=== PATIENT | female | born 1955 | race Caucasian/White ===

== ENCOUNTER → 2016-10-03 | Outpatient (CLI) | payer OTHER ==
[~2016-10-03] MED LIST: ACETAMINOPHEN; ALPRAZOLAM2 MG PO; ANAPROX DS550 MG PO; ASPIRIN CHEWABL81 MG PO; AZO-SULFISOXAZO1 TA1 PO; BENZTROPINE MESY2 MG PO; BRIN20TA PO; BUPROPION HYDR300 M1 PO; CALCIUM 500 + D1 TA1 PO; CIPRO500 MG PO; CIPROFLOXACIN500 MG PO; CLARITIN 24HR10 MG PO; CLEOCIN150 MG PO; CLINDAMYCIN150 MG PO; COGENTIN PO; COGENTIN2 MG PO; COMBIVENT RESPIMAT I; COMBIVENT1 AR1 IH; COMBIVENT1 ARO IH; DOC-Q-LACE100 MG PO; EES400 MG PO; FENOFIBRATE160 MG PO; FLEXERIL10 MG PO; FOLIC ACID1 MG PO; FOSAMAX70 MG PO; GABAPENTIN600 MG PO; HYDROXYZINE PAM50 MG PO; IMITREX PO; IMITREX50 MG PO; INDERAL20 MG PO; K-Dur 20MEQ20 MEQ PO; KEPPRA750 MG PO; KLONOPIN1 M1 PO; KLOR-CON M2020 MEQ PO; LATU40TA PO; LOMOTIL 0.025 M1 TA1 PO; MEDROL DOSEPAK4 MG PO; METHOCARBAMOL750 MG PO; MOTRIN800 MG PO; NAPROSYN500 MG PO; NEURONTIN100 MG; NEURONTIN600 MG PO; OCUFLOX 0.3% 5 M5 ML; OSCAL ULTRA 6001 TAB PO; OXYCODONE; OYSTER CALCIUM1 TA2 PO; OYSTER SHELL CA1 TAB PO; PERCOCET 325 MG1 TA2 PO; PERCOCET 325 MG1 TA5 PO; PERCOCET 325 MG1 TA6 PO; PRAVACHOL40 MG PO; PREDNICOT20 MG PO; PROTONIX20 MG PO; REQUIP3 MG PO; ROBAXIN750 MG PO; ROPINIROLE HYDRO1 MG PO; ROZEREM8 MG PO; SEROQUEL100 MG PO; SEROQUEL25 MG PO; SEROQUEL300 MG PO; SEROQUEL400 MG; SIMVASTATIN40 MG PO; SUMATRIPTAN SUC50 MG PO; TORADOL10 MG PO; TYLENOL650 M1 PO; ULTRAM50 MG PO; VALIUM2 MG PO; VICO10300 PO; VISTARIL50 MG PO; VITAMIN D1000 IU PO; VITAMIN D50000 I1 PO; WELLBUTRIN PO; WELLBUTRIN XL300 MG PO; XANAX1 MG PO; XANAX2 MG; XANAX2 MG PO; ZOCOR PO; ZOCOR20 MG PO; ZOFRAN ODT4 MG SL; ZYRTEC10 MG PO; [UNRECOGNIZED DRUG - OTHER]; [UNRECOGNIZED DRUG - REMARK]
== END | disposition home or self-care (01) ==
LOC: RAD 07:57
DX: M40.04 Postural kyphosis, thoracic region (principal); M54.9 Dorsalgia, unspecified; M54.2 Cervicalgia; M25.561 Pain in right knee; M25.562 Pain in left knee

== ENCOUNTER 2017-05-21 19:01 | Emergency (ER) | payer OTHER ==
[~2017-05-21] VITALS: Ht 160 cm; Wt 59.0 kg
[2017-05-21 20:19] LABS: HEMOGLOBIN 12.5 g/dl (12.0-16.0); MEAN CELL VOLUME 101.9 fl (81.0-99.0); MEAN CORPUSCULAR HGB 34.4 pg (27.0-31.0); MEAN CORPUSCULAR HGB CONC 33.8 g/dl (33.0-37.0); MEAN PLATELET VOLUME 10.2 fl (9.6-12.3); PLATELET COUNT AUTOMATED 103 10*3/uL (130-400); RED BLOOD COUNT 3.63 10*6/uL (4.10-5.10); RED CELL DISTRI WIDTH 13.1 % (0-14.5); WHITE BLOOD COUNT 2.8 10*3/uL (4.8-10.8)
[2017-05-21 20:28] LABS: ACT PARTIAL THROMBO TIME 27.5 SECONDS (20.8-31.5); INTERNATIONAL NORM RATIO 1.1 (2.0-3.5)
[2017-05-21 20:36] LABS: ALBUMIN 3.1 gm/dl (3.1-4.5); ALKALINE PHOSPHATASE 114 U/L (45-117); BUN 6 mg/dl (7-24); CHLORIDE 108 mmol/L (98-107); CREATININE 0.84 mg/dL (0.55-1.02); MAGNESIUM 1.8 mg/dL (1.5-2.1); SGOT/AST 49 IU/L (3-35); SGPT/ALT 53 U/L (12-78); SODIUM 140 mmol/L (136-145); TOTAL PROTEIN 6.7 gm/dL (6.4-8.2)
[2017-05-21 20:41] LABS: TROPONIN I < 0.015 ng/ml (<0.045)
[2017-05-21 20:46] LABS: BASOPHILS 1 % (0-1); TOTAL CELLS COUNTED 100 #CELLS
[2017-05-21 20:49] LABS: POLYCHROMASIA SLIGHT
[2017-05-21 20:50] LABS: OVALOCYTES FEW
[2017-05-21 20:51] LABS: PLATELET SUFFICIENCY LOW (NORMAL)
[2017-05-21] MEDS ORDERED: AVPAK AZITHROM250 M1 PO (21:41)
[2017-05-21] MEDS ORDERED: PREDNISONE50 MG PO (21:41)
== END 2017-05-21 22:21 | disposition home or self-care (01) ==
LOC: ED 19:01
PROVIDERS: Student in an Organized Health Care Education/Training Program
DX: J06.9 Acute upper respiratory infection, unspecified (principal); D72.819 Decreased white blood cell count, unspecified; D69.6 Thrombocytopenia, unspecified; M13.861 Other specified arthritis, right knee; F17.200 Nicotine dependence, unspecified, uncomplicated; G25.81 Restless legs syndrome; Z90.710 Acquired absence of both cervix and uterus; Z98.890 Other specified postprocedural states; Z79.899 Other long term (current) drug therapy; Z79.82 Long term (current) use of aspirin; Z88.2 Allergy status to sulfonamides

== ENCOUNTER 2017-05-28 17:41 | Emergency (ER) | payer OTHER ==
[~2017-05-28] VITALS: Ht 160 cm; Wt 61.7 kg
[~2017-05-28 17:41] MED LIST changes: +AVPAK AZITHROM250 M1 PO; +PREDNISONE50 MG PO
== END 2017-05-28 22:26 | disposition home or self-care (01) ==
LOC: ED 17:41
DX: G89.29 Other chronic pain (principal); F17.200 Nicotine dependence, unspecified, uncomplicated; Z90.710 Acquired absence of both cervix and uterus; Z98.890 Other specified postprocedural states; Z79.899 Other long term (current) drug therapy; Z79.82 Long term (current) use of aspirin; Z88.2 Allergy status to sulfonamides

== ENCOUNTER 2017-05-30 13:49 | Emergency (ER) | payer OTHER ==
[~2017-05-30] VITALS: Ht 160 cm; Wt 59.0 kg
== END 2017-05-30 14:39 | disposition home or self-care (01) ==
LOC: ED 13:49
DX: G89.29 Other chronic pain (principal); F17.200 Nicotine dependence, unspecified, uncomplicated; M17.9 Osteoarthritis of knee, unspecified; G25.81 Restless legs syndrome; Z90.710 Acquired absence of both cervix and uterus; Z98.890 Other specified postprocedural states; Z79.899 Other long term (current) drug therapy; Z79.82 Long term (current) use of aspirin; Z88.2 Allergy status to sulfonamides

== ENCOUNTER 2017-08-11 09:15 | Inpatient (IN) | payer OTHER ==
[~2017-08-11] VITALS: Ht 160 cm; Wt 59.2 kg
--- NOTE | ~2017-08-11 | EKG ---
[place], [place] ELECTROCARDIOGRAM REPORT NAME: [id number] UNIT #: [id number] ROOM: [place] [address] DOCTOR: JORDIN GOODE,KEYLA BIRTHDATE: [birth year] DOS: 08/11/2017 TIME: 1327 hours. IMPRESSION: 1. Sinus rhythm. 2. Nonspecific ST-T changes. 3. Normal QT interval. KEYLA BRENNER MD CM:EKGRPT:ELECTROCARDIOGRAM REPORT [id number] KEYLA BRENNER MD
[2017-08-11 09:15] VITALS: BP 149/79
[2017-08-11 11:00] VITALS: BP 122/87
--- NOTE | 2017-08-11 11:00 | NUR ---
PT DISPLAYING WITHDRAWL SYMPTOMS.
[2017-08-11 11:15] LABS: BASO % 0.6 % (0.0-1.0); EOS % 0.9 % (1.0-4.0); HEMATOCRIT 42.7 % (37.0-47.0); HEMOGLOBIN 14.4 g/dl (12.0-16.0); LYMPH # 1.5 10*3/uL (1.3-4.4); LYMPH % 43.9 % (27.0-41.0); MEAN CORPUSCULAR HGB 33.7 pg (27.0-31.0); MEAN CORPUSCULAR HGB CONC 33.7 g/dl (33.0-37.0); MEAN PLATELET VOLUME 9.9 fl (9.6-12.3); MONO # 0.1 10*3/uL (0.1-1.0); MONO % 2.9 % (3.0-9.0); NEUT # 1.8 10*3/uL (2.3-7.9); NEUT % 51.4 % (47.0-73.0); PLATELET COUNT AUTOMATED 94 10*3/uL (130-400); RED BLOOD COUNT 4.27 10*6/uL (4.10-5.10); WHITE BLOOD COUNT 3.4 10*3/uL (4.8-10.8)
[2017-08-11 11:24] LABS: ACT PARTIAL THROMBO TIME 26.1 SECONDS (20.8-31.5); INTERNATIONAL NORM RATIO 1.1 (2.0-3.5)
[2017-08-11 11:31] LABS: ALBUMIN 3.7 gm/dl (3.1-4.5); BUN 10 mg/dl (7-24); CHLORIDE 109 mmol/L (98-107); CREATININE 0.76 mg/dL (0.55-1.02); LIPASE 189 U/L (73-393); POTASSIUM 3.9 mmol/L (3.5-5.1); SGOT/AST 51 IU/L (3-35); SGPT/ALT 69 U/L (12-78); SODIUM 143 mmol/L (136-145); TOTAL PROTEIN 7.6 gm/dL (6.4-8.2)
[2017-08-11 11:32] LABS: ALKALINE PHOSPHATASE 110 U/L (45-117)
[2017-08-11 11:33] LABS: TROPONIN I < 0.015 ng/ml (<0.045)
--- NOTE | 2017-08-11 11:43 | NUR ---
PT REFUSING CT
[2017-08-11 13:18] VITALS: BP 132/80
--- NOTE | 2017-08-11 13:20 | NUR ---
AFTER ATIVAN PT IS MORE COOPERATIVE.
[2017-08-11] MEDS ORDERED: ATARAX,VISTARIL10 MG PO (13:29)
[2017-08-11] MEDS ORDERED: DOXEPIN HCL25 MG PO (13:29)
--- NOTE | 2017-08-11 13:32 | NUR ---
Med rec was updated w/ [facility].
[2017-08-11 13:36] VITALS: BP 132/94
--- NOTE | 2017-08-11 13:36 | NUR ---
A 62, admitted to ICCU, under the services of YING De León DO with a diagnosis of METABOLIC ENCEPHALOPATHY. Chief complaint is PT. STATES SHE CAN'T TELL ME WHY SHE IS HERE. PER TRIAGE. dTR BROUGHT HER IN SHE WAS OUT OF MEDS . Patient arrived via stretcher from ER. Monitor applied. Initial assessment completed. Vital signs taken and recorded. YING DE LEÓN DO notified of admission to the unit. Orders received. See assessment for past medical history, medications and allergies. Patient and/or family oriented to unit. [facility] ICCU visitation policy reviewed. Clothing/patient valuable form completed. SHARON ARAGON
[2017-08-11] MEDS ORDERED: ASPIR 8181 MG PO (13:55)
[2017-08-11] MEDS ORDERED: Oscal,Oyster S500 MG PO (13:56)
[2017-08-11 16:00] VITALS: BP 148/73
--- NOTE | 2017-08-11 18:16 | NUR ---
Difficulty w/ IV access. IV to rW occluded and dc'd. IV to lW leaking at insertion site. IV attempts x6 2 w/ US guidence . Unsuccessful. Medicated for nausea w/ vomiting of green bile. Effective.
--- NOTE | 2017-08-11 19:25 | NUR ---
BACK FROM CT SCAN. SHARON ARAGON NOTIFIED DR FERRARI, PRIOR TO CT SCAN, THAT PT HAS NO IV ACCESS AFTER VERY MANY ATTEMPTS INCLUDING WITH ULTRASOUND.
[2017-08-11 20:00] VITALS: BP 173/81
--- NOTE | 2017-08-11 20:39 | NUR ---
DR FERRARI HERE...NOTIFIED OF CT ABDOMEN RESULTS.
[2017-08-12] VITALS: BP 140/70
[2017-08-12 04:00] VITALS: BP 137/90
--- NOTE | 2017-08-12 04:52 | NUR ---
IV LEAKED. COMPLETE BED LINEN AND GOWN CHANGE DONE. PT UP TO BSC.
[2017-08-12 04:55] LABS: BASO % 0.5 % (0.0-1.0); EOS # 0.1 10*3/uL (0.0-0.4); EOS % 1.5 % (1.0-4.0); HEMATOCRIT 37.8 % (37.0-47.0); LYMPH # 2.4 10*3/uL (1.3-4.4); LYMPH % 58.5 % (27.0-41.0); MEAN CELL VOLUME 100.5 fl (81.0-99.0); MEAN CORPUSCULAR HGB 34.6 pg (27.0-31.0); MEAN CORPUSCULAR HGB CONC 34.4 g/dl (33.0-37.0); MONO # 0.2 10*3/uL (0.1-1.0); MONO % 5.9 % (3.0-9.0); NEUT # 1.4 10*3/uL (2.3-7.9); NEUT % 33.4 % (47.0-73.0); PLATELET COUNT AUTOMATED 87 10*3/uL (130-400); RED BLOOD COUNT 3.76 10*6/uL (4.10-5.10); RED CELL DISTRI WIDTH 12.7 % (0-14.5); WHITE BLOOD COUNT 4.1 10*3/uL (4.8-10.8)
[2017-08-12 05:02] LABS: ACT PARTIAL THROMBO TIME 25.2 SECONDS (20.8-31.5); INTERNATIONAL NORM RATIO 1.1 (2.0-3.5)
--- NOTE | 2017-08-12 05:14 | NUR ---
IV CONNECTIONS TIGHTENED...CONTINUES TO HAVE GOOD BLOOD RETURN. IVF RESUMED AND HAS NOT LEAKED SINCE. PT STILL HAS NOT VOIDED FOR ME. NO DISTENTION NOTED. BLADDER SCANNED FOR 60CC.
--- NOTE | 2017-08-12 05:17 | NUR ---
DR FERRARI NOTIFIED OF PT NOT VOIDING SINCE ADMISSION AND THAT SHE WAS BLADDER SCANNED FOR 60CC. NO NEW ORDERS AT THIS TIME.
[2017-08-12 05:22] LABS: ALBUMIN 3.3 gm/dl (3.1-4.5); ALKALINE PHOSPHATASE 93 U/L (45-117); BUN 9 mg/dl (7-24); CHLORIDE 107 mmol/L (98-107); CHOLESTEROL 145 mg/dL (<200); CREATININE 0.62 mg/dL (0.55-1.02); FREE T4 0.69 ng/dl (0.76-1.46); HDL CHOLESTEROL 28 mg/dl (40-60); LDL CHOLESTEROL 98 mg/dL (9-159); PHOSPHOROUS 3.3 mg/dL (2.5-4.9); POTASSIUM 3.4 mmol/L (3.5-5.1); SGOT/AST 43 IU/L (3-35); SGPT/ALT 58 U/L (12-78); SODIUM 143 mmol/L (136-145); TOTAL PROTEIN 6.7 gm/dL (6.4-8.2); TRIGLYCERIDES 93 mg/dl (<150); VLDL CHOLESTEROL 19 mg/dL (6-40)
[2017-08-12 08:00] VITALS: BP 134/69
[2017-08-12 08:38] LABS: VITAMIN D, 25-HYDROXY 37.4 ng/mL (30-100)
--- NOTE | 2017-08-12 09:26 | NUR ---
Side lying , awakens easily. Dtr. Called in update given.
--- NOTE | 2017-08-12 11:05 | NUR ---
Dr. Daniel in, Order for tsfr to telemetry recieved.
[2017-08-12 12:00] VITALS: BP 130/68
--- NOTE | 2017-08-12 14:44 | NUR ---
Medicated for anxiety , nicoderm placed
[2017-08-12 16:00] VITALS: BP 135/89
--- NOTE | 2017-08-12 16:45 | NUR ---
ON 1600 ASSESSMENT PT. STATED SHE HAD TO VOID. assisted to BSC for 30 cc dark sam urine. returned to bed and bladder scan which revealed >[address] Lerner was called and recommended jama cath insertion . pt. overheard conversation w/ physician and stated that she had to go again. Up to BSC for large formed stool and 150 cc dark sam urine, in lieu of > 999 on scan. jama cath #16 was inserted w/o difficulty for post void residual of 1,000 cc dark sam urine. Jama cath secured to rt. thigh.
[2017-08-12 16:51] LABS: BILIRUBIN NEGATIVE (NEGATIVE); BLOOD NEGATIVE (NEGATIVE); CLARITY CLEAR (CLEAR); COLOR YELLOW (YELLOW); GLUCOSE NEGATIVE (NEGATIVE); KETONE NEGATIVE (NEGATIVE); LEUKO ESTERASE NEGATIVE (NEGATIVE); NITRITE NEGATIVE (NEGATIVE); PH 6.5 (5.0-9.0); SPECIFIC GRAVITY 1.015 (1.005-1.030); UROBILINOGEN 0.2 E.U./dl (0.2-1.0)
[2017-08-12 16:56] LABS: BACTERIA TRACE; EPITHELIAL CELLS 0-2; RBC 0-2 rbc/hpf (0-2)
--- NOTE | 2017-08-12 18:49 | NUR ---
Shift chart check completed.24 HR chart check completed.
--- NOTE | 2017-08-12 19:12 | NUR ---
Medicated for c/o headache.
--- NOTE | 2017-08-12 19:36 | NUR ---
PT MOVED TO A ROOM, WHERE IT WILL BE QUIETER/LIGHTS DIMMER SHE IS COMPLAINING OF A MIGRAINE ON THE "RIGHT SIDE" OF MY HEAD. PREVIOUS NURSE GAVE HER TYLENOL. NO NAUSEA/VOMITING. SHE DENIES TUNNEL VISION. SAID "DR ALDANA GAVE ME IMITREX". HEP LOCK INTACT. MONITOR NSR. LUNGS CLEAR, 98% ON ROOM AIR. HEP LOCK INTACT. ABDOMEN SOFT. ADKINS PATENT YELLOW URINE.
[2017-08-12 20:00] VITALS: BP 155/86
--- NOTE | 2017-08-12 20:14 | NUR ---
DR FERRARI NOTIFIED THAT PT C/O MIGRAINE. HE SAID HE WILL ENTER ORDERS.
--- NOTE | 2017-08-12 21:49 | NUR ---
PT HAD IMITREX AT 2023 AND HAS BEEN SLEEPING SINCE. NO DYSRHYTHMIAS OR RESPIRATORY DISTRESS.
--- NOTE | 2017-08-12 22:13 | NUR ---
PT AWAKE FOR HER SCHEDULED MEDS. STATES HER HEADACHE "COMPLETELY GONE, THAT IMITREX IS THE BEST STUFF THEY EVER MADE".
[2017-08-13] VITALS: BP 159/74
--- NOTE | 2017-08-13 02:57 | NUR ---
HAS BEEN SLEEPING WITH NO DISTRESS.
[2017-08-13 05:36] LABS: ALBUMIN 3.1 gm/dl (3.1-4.5); ALKALINE PHOSPHATASE 88 U/L (45-117); BUN 6 mg/dl (7-24); CHLORIDE 111 mmol/L (98-107); CREATININE 0.67 mg/dL (0.55-1.02); SGOT/AST 48 IU/L (3-35); SGPT/ALT 59 U/L (12-78); SODIUM 141 mmol/L (136-145); TOTAL PROTEIN 6.5 gm/dL (6.4-8.2)
[2017-08-13 05:48] LABS: POTASSIUM 4.5 mmol/L (3.5-5.1)
[2017-08-13 06:26] LABS: HEMATOCRIT 39.4 % (37.0-47.0); HEMOGLOBIN 13.2 g/dl (12.0-16.0); MEAN CELL VOLUME 101.3 fl (81.0-99.0); MEAN CORPUSCULAR HGB 33.9 pg (27.0-31.0); MEAN CORPUSCULAR HGB CONC 33.5 g/dl (33.0-37.0); MEAN PLATELET VOLUME 10.3 fl (9.6-12.3); PLATELET COUNT AUTOMATED 78 10*3/uL (130-400); RED BLOOD COUNT 3.89 10*6/uL (4.10-5.10); RED CELL DISTRI WIDTH 12.8 % (0-14.5)
[2017-08-13 07:15] LABS: BASOPHILS 2 % (0-1); OVALOCYTES FEW; PLATELET SUFFICIENCY LOW (NORMAL); POLYCHROMASIA SLIGHT; TOTAL CELLS COUNTED 100 #CELLS
[2017-08-13 08:00] VITALS: BP 122/75
[2017-08-13 12:00] VITALS: BP 132/81
--- NOTE | 2017-08-13 14:42 | NUR ---
TRANSFERRED TO [facility]
[2017-08-13 16:00] VITALS: BP 115/74
--- NOTE | 2017-08-13 16:45 | NUR ---
PT MEDICATED WITH VISTARIL. FOR C/O ANXIETY. WILL MONITRO
--- NOTE | 2017-08-13 17:00 | NUR ---
PT URINATED, SINCE LUCILLE HAS BEEN DC'D
--- NOTE | 2017-08-13 18:06 | NUR ---
pt states that vistaril helped a little. will monitor
[2017-08-13 20:00] VITALS: BP 124/73
[2017-08-14] VITALS: BP 95/48
[2017-08-14 06:42] LABS: BASO % 0.7 % (0.0-1.0); EOS # 0.1 10*3/uL (0.0-0.4); EOS % 3.3 % (1.0-4.0); HEMATOCRIT 37.8 % (37.0-47.0); HEMOGLOBIN 12.6 g/dl (12.0-16.0); LYMPH # 1.6 10*3/uL (1.3-4.4); LYMPH % 51.5 % (27.0-41.0); MEAN CELL VOLUME 101.6 fl (81.0-99.0); MEAN CORPUSCULAR HGB 33.9 pg (27.0-31.0); MEAN CORPUSCULAR HGB CONC 33.3 g/dl (33.0-37.0); MEAN PLATELET VOLUME 10.5 fl (9.6-12.3); MONO # 0.2 10*3/uL (0.1-1.0); MONO % 5.9 % (3.0-9.0); NEUT # 1.2 10*3/uL (2.3-7.9); NEUT % 38.6 % (47.0-73.0); PLATELET COUNT AUTOMATED 88 10*3/uL (130-400); RED BLOOD COUNT 3.72 10*6/uL (4.10-5.10); RED CELL DISTRI WIDTH 12.7 % (0-14.5); WHITE BLOOD COUNT 3.1 10*3/uL (4.8-10.8)
[2017-08-14 06:46] LABS: ALBUMIN 2.9 gm/dl (3.1-4.5); ALKALINE PHOSPHATASE 95 U/L (45-117); BUN 7 mg/dl (7-24); CHLORIDE 111 mmol/L (98-107); CREATININE 0.67 mg/dL (0.55-1.02); PHOSPHOROUS 4.1 mg/dL (2.5-4.9); POTASSIUM 3.7 mmol/L (3.5-5.1); SGOT/AST 54 IU/L (3-35); SGPT/ALT 65 U/L (12-78); SODIUM 143 mmol/L (136-145)
[2017-08-14 08:00] VITALS: BP 114/88
--- NOTE | 2017-08-14 09:48 | NUR ---
NOTIFIED DR AVELAR OF NEW CONSULT.
--- NOTE | 2017-08-14 09:51 | NUR ---
DR BRAGG ROUNDED, PT ASSESSED. PT STATED "SHE'S GOING HOME!", DR BRAGG ASSURED PT THAT SHE WAS ABLE TO F/U OUTPATIENT AT DR FLORES'S OFFICE. PT WAS SDATISFIED WITH THAT AT THIS TIME.
[2017-08-14] MEDS ORDERED: ATIVAN0.5 MG PO (10:55)
[2017-08-14] MEDS ORDERED: BETHANECHOL CHL25 MG PO (10:55)
[2017-08-14 12:00] VITALS: BP 116/71
--- NOTE | 2017-08-14 12:33 | NUR ---
Discharge instructions reviewed with patient/family. Patient receptive and verbalizes understanding. Follow-up care arranged. Written instructions given to patient/family. BONILLA HAM
== END 2017-08-14 12:33 | disposition home or self-care (01) | DRG 896 ==
LOC: ED 09:15 → ICCU 12:09 → EDHOLD 12:09 → ICCU 12:12 → 5E 08-13 15:13
PROVIDERS: Emergency Medicine; Internal Medicine; Internal Medicine Nephrology; ADMIT Student in an Organized Health Care Education/Training Program
DX: F13.239 Sedative, hypnotic or anxiolytic dependence with withdrawal, unspecified (principal); G93.41 Metabolic encephalopathy; E87.2 Acidosis; D69.6 Thrombocytopenia, unspecified; R73.9 Hyperglycemia, unspecified; G25.81 Restless legs syndrome; M17.11 Unilateral primary osteoarthritis, right knee; G89.29 Other chronic pain; F41.9 Anxiety disorder, unspecified; D72.810 Lymphocytopenia; G43.909 Migraine, unspecified, not intractable, without status migrainosus; F32.9 Major depressive disorder, single episode, unspecified; G47.00 Insomnia, unspecified; Z85.41 Personal history of malignant neoplasm of cervix uteri; Z90.710 Acquired absence of both cervix and uterus; Z80.9 Family history of malignant neoplasm, unspecified; Z88.2 Allergy status to sulfonamides; Z72.0 Tobacco use; Z79.82 Long term (current) use of aspirin; Z79.899 Other long term (current) drug therapy

== ENCOUNTER 2018-01-03 23:17 | Inpatient (IN) | payer OTHER ==
[~2018-01-03] VITALS: Ht 160 cm; Wt 56.9 kg
[~2018-01-03 23:17] MED LIST changes: +ASPIR 8181 MG PO; +ATARAX,VISTARIL10 MG PO; +ATIVAN0.5 MG PO; +BETHANECHOL CHL25 MG PO; +CLONAZEPAM1 MG PO; +DOXEPIN HCL25 MG PO; +Oscal,Oyster S500 MG PO; +PEPCID20 MG PO
[2018-01-03 23:20] VITALS: BP 145/78
[2018-01-03 23:48] LABS: BASO % 0.5 % (0.0-1.0); EOS # 0.1 10*3/uL (0.0-0.4); EOS % 1.9 % (1.0-4.0); HEMATOCRIT 43.2 % (37.0-47.0); HEMOGLOBIN 14.5 g/dl (12.0-16.0); LYMPH # 1.9 10*3/uL (1.3-4.4); LYMPH % 44.1 % (27.0-41.0); MEAN CELL VOLUME 99.5 fl (81.0-99.0); MEAN CORPUSCULAR HGB 33.4 pg (27.0-31.0); MEAN CORPUSCULAR HGB CONC 33.6 g/dl (33.0-37.0); MEAN PLATELET VOLUME 10.1 fl (9.6-12.3); MONO # 0.3 10*3/uL (0.1-1.0); MONO % 6.8 % (3.0-9.0); NEUT % 46.7 % (47.0-73.0); PLATELET COUNT AUTOMATED 126 10*3/uL (130-400); RED BLOOD COUNT 4.34 10*6/uL (4.10-5.10); RED CELL DISTRI WIDTH 13.5 % (0-14.5); WHITE BLOOD COUNT 4.2 10*3/uL (4.8-10.8)
[2018-01-04] VITALS (8 sets, daily range): BP systolic 140–173; BP diastolic 69–96
[2018-01-04 00:10] LABS: ALBUMIN 3.7 gm/dl (3.1-4.5); ALKALINE PHOSPHATASE 111 U/L (45-117); BUN 14 mg/dl (7-24); CHLORIDE 108 mmol/L (98-107); CREATININE 0.71 mg/dL (0.55-1.02); POTASSIUM 3.7 mmol/L (3.5-5.1); SGOT/AST 35 IU/L (3-35); SGPT/ALT 45 U/L (12-78); SODIUM 142 mmol/L (136-145); TOTAL PROTEIN 7.6 gm/dL (6.4-8.2)
[2018-01-04 00:12] LABS: TROPONIN I < 0.015 ng/ml (<0.045)
[2018-01-04 01:08] LABS: LIPASE 168 U/L (73-393)
[2018-01-04 01:18] LABS: BILIRUBIN 1+ (NEGATIVE); BLOOD NEGATIVE (NEGATIVE); CLARITY SL CLOUDY (CLEAR); COLOR YELLOW (YELLOW); GLUCOSE NEGATIVE (NEGATIVE); KETONE 2+ (NEGATIVE); LEUKO ESTERASE NEGATIVE (NEGATIVE); NITRITE NEGATIVE (NEGATIVE); SPECIFIC GRAVITY >= 1.030 (1.005-1.030)
[2018-01-04 01:27] LABS: URINE AMPHETAMINES < 1000 (1000ng/ml); URINE BARBITURATES < 200 (200ng/ml); URINE BENZODIAZEPINES < 200 (200ng/ml); URINE CANNABINOIDS (THC) < 50 (50ng/ml); URINE COCAINE > 300 (300ng/ml); URINE METHADONE < 300 (300ng/ml); URINE OPIATES < 300 (300ng/ml)
[2018-01-04 01:28] LABS: URINE PHENCYCLIDINE < 25 (25ng/ml)
[2018-01-04] MEDS ORDERED: KEPPRA250 MG PO (01:31)
[2018-01-04] MEDS ORDERED: KEPPRA750 MG PO (01:31)
[2018-01-04] MEDS ORDERED: ATARAX,VISTARIL10 MG PO ×2 (01:32→09:48)
[2018-01-04 01:34] LABS: BACTERIA 1+; MUCOUS 1+
[2018-01-04] MEDS ORDERED: NEURONTIN600 MG PO (09:47)
[2018-01-05] VITALS: BP 132/75
[2018-01-05 05:55] LABS: BASO % 0.6 % (0.0-1.0); EOS # 0.3 10*3/uL (0.0-0.4); EOS % 3.7 % (1.0-4.0); HEMATOCRIT 42.6 % (37.0-47.0); LYMPH # 3.6 10*3/uL (1.3-4.4); LYMPH % 52.6 % (27.0-41.0); MEAN CELL VOLUME 99.5 fl (81.0-99.0); MEAN CORPUSCULAR HGB 32.7 pg (27.0-31.0); MEAN CORPUSCULAR HGB CONC 32.9 g/dl (33.0-37.0); MONO # 0.5 10*3/uL (0.1-1.0); MONO % 6.6 % (3.0-9.0); NEUT # 2.5 10*3/uL (2.3-7.9); NEUT % 36.2 % (47.0-73.0); PLATELET COUNT AUTOMATED 146 10*3/uL (130-400); RED BLOOD COUNT 4.28 10*6/uL (4.10-5.10); RED CELL DISTRI WIDTH 13.6 % (0-14.5); WHITE BLOOD COUNT 6.8 10*3/uL (4.8-10.8)
[2018-01-05 06:07] LABS: BUN 12 mg/dl (7-24); CHLORIDE 103 mmol/L (98-107); CHOLESTEROL 163 mg/dL (<200); CREATININE 0.82 mg/dL (0.55-1.02); HDL CHOLESTEROL 23 mg/dl (40-60); LDL CHOLESTEROL 117 mg/dL (9-159); PHOSPHOROUS 3.2 mg/dL (2.5-4.9); SODIUM 138 mmol/L (136-145); TRIGLYCERIDES 114 mg/dl (<150); VLDL CHOLESTEROL 23 mg/dL (6-40)
[2018-01-05 07:12] LABS: VITAMIN D, 25-HYDROXY 41.8 ng/mL (30-100)
[2018-01-05 08:00] VITALS: BP 108/65
[2018-01-05] MEDS ORDERED: SEROQUEL100 MG PO (11:29)
== END 2018-01-05 12:20 | disposition home or self-care (01) | DRG 71 ==
LOC: ED 23:17 → 4E 01-04 02:07 → EDHOLD 01-04 02:07 → 4E 01-04 02:11
PROVIDERS: Emergency Medicine; Student in an Organized Health Care Education/Training Program
DX: G93.40 Encephalopathy, unspecified (principal); F13.239 Sedative, hypnotic or anxiolytic dependence with withdrawal, unspecified; D69.6 Thrombocytopenia, unspecified; Z83.3 Family history of diabetes mellitus; E83.41 Hypermagnesemia; F14.10 Cocaine abuse, uncomplicated; D72.819 Decreased white blood cell count, unspecified; D75.89 Other specified diseases of blood and blood-forming organs; R73.9 Hyperglycemia, unspecified; M13.861 Other specified arthritis, right knee; F17.210 Nicotine dependence, cigarettes, uncomplicated; G25.81 Restless legs syndrome; G43.909 Migraine, unspecified, not intractable, without status migrainosus; G89.29 Other chronic pain; F41.9 Anxiety disorder, unspecified; F32.9 Major depressive disorder, single episode, unspecified; Z88.2 Allergy status to sulfonamides; Z85.41 Personal history of malignant neoplasm of cervix uteri; Z90.710 Acquired absence of both cervix and uterus

== ENCOUNTER 2018-04-15 12:07 | Emergency (ER) | payer MEDICARE, MEDICAID ==
[~2018-04-15] VITALS: Ht 160 cm; Wt 60.3 kg
[~2018-04-15 12:07] MED LIST changes: +KEPPRA250 MG PO
[2018-04-23] MEDS ORDERED: SEROQUEL300 MG PO (08:51)
[2018-04-26] MEDS ORDERED: AMOXICILLIN500 M2 PO (09:18)
[2018-04-26] MEDS ORDERED: CLARITHROMYCIN500 MG PO (09:18)
[2018-04-26] MEDS ORDERED: OMEPRAZOLE40 MG PO (09:18)
== END 2018-04-15 12:25 | disposition left against medical advice (07) ==
LOC: ED 12:07
DX: R05 Cough (principal); F17.200 Nicotine dependence, unspecified, uncomplicated; Z53.21 Procedure and treatment not carried out due to patient leaving prior to being seen by health care provider; Z88.2 Allergy status to sulfonamides

== ENCOUNTER 2018-06-01 15:31 | Inpatient (IN) | payer MEDICARE, MEDICAID ==
[~2018-06-01] VITALS: Ht 160 cm; Wt 63.1 kg
--- NOTE | ~2018-06-01 | EKG ---
[place], [place] ELECTROCARDIOGRAM REPORT NAME: MICHELLE JANG UNIT #: [id number] ROOM: 505 DOCTOR: KAT DRAFT REPORT BIRTHDATE: [address] [facility] Test Date: 2018-06-01 Test Time: 16:47:33 Pat Name: MICHELLE JANG Department: Room: 505 Gender: F Architectural Engineer: Freida Lal : 1955 Requested By: CRYSTAL ADAN Order Number: [id number] Reading MD: Johny Benjamin MD Measurements Intervals [place] Rate: 86 P: 62 CO: 168 QRS: 38 QRSD: 79 T: 50 QT: 360 QTc: 431 Interpretive Statements Sinus rhythm Probable left atrial enlargement No previous ECG available for comparison Electronically Signed On 06-06-2018 12:13:06 PDT by Johny Benjamin MD CM:EKGRPT:ELECTROCARDIOGRAM REPORT [id number] 1213 CRYSTAL ELIZABETH DRAFT REPORT CRYSTAL ADAN DO
[2018-06-01 15:31] VITALS: BP 147/84
[~2018-06-01 15:31] MED LIST changes: +AMOXICILLIN500 M2 PO; +CLARITHROMYCIN500 MG PO; +OMEPRAZOLE40 MG PO
[2018-06-01 16:54] LABS: BASO % 0.8 % (0.0-1.0); EOS # 0.1 10*3/uL (0.0-0.4); EOS % 1.9 % (1.0-4.0); HEMATOCRIT 41.3 % (37.0-47.0); HEMOGLOBIN 13.7 g/dl (12.0-16.0); LYMPH # 1.8 10*3/uL (1.3-4.4); LYMPH % 48.4 % (27.0-41.0); MEAN CELL VOLUME 103.3 fl (81.0-99.0); MEAN CORPUSCULAR HGB 34.3 pg (27.0-31.0); MEAN CORPUSCULAR HGB CONC 33.2 g/dl (33.0-37.0); MONO # 0.2 10*3/uL (0.1-1.0); MONO % 5.9 % (3.0-9.0); NEUT # 1.6 10*3/uL (2.3-7.9); NEUT % 42.7 % (47.0-73.0); PLATELET COUNT AUTOMATED 100 10*3/uL (130-400); RED CELL DISTRI WIDTH 14.3 % (0-14.5); WHITE BLOOD COUNT 3.8 10*3/uL (4.8-10.8)
[2018-06-01 17:10] LABS: ALKALINE PHOSPHATASE 78 U/L (45-117); BUN 8 mg/dl (7-24); CHLORIDE 106 mmol/L (98-107); IRON 126 ug/dL (50-170); LIPASE 251 U/L (73-393); SGOT/AST 39 IU/L (3-35); SGPT/ALT 71 U/L (12-78); SODIUM 139 mmol/L (136-145); TOTAL IRON BINDING CAPACITY 403 ug/dl (250-450); TOTAL PROTEIN 7.6 gm/dL (6.4-8.2)
[2018-06-01 17:12] LABS: TROPONIN I < 0.015 ng/ml (<0.045)
[2018-06-01 17:14] LABS: ACT PARTIAL THROMBO TIME 23.1 SECONDS (20.8-31.5)
[2018-06-01] MEDS ORDERED: CLONAZEPAM0.5 M2 PO (18:27)
[2018-06-01] MEDS ORDERED: BUSPIRONE HCL10 MG PO (18:28)
[2018-06-01] MEDS ORDERED: NEURONTIN300 MG PO (18:29)
[2018-06-01] MEDS ORDERED: QUETIAPINE FUM300 M1 PO (18:31)
[2018-06-01] MEDS ORDERED: DOXEPIN HCL50 MG PO (18:32)
[2018-06-01 18:55] VITALS: BP 145/82
[2018-06-01 19:05] VITALS: BP 149/94
[2018-06-01 20:00] VITALS: BP 142/86
[2018-06-02] VITALS: BP 102/63
[2018-06-02 04:00] VITALS: BP 90/55
[2018-06-02 06:30] LABS: BASO % 0.6 % (0.0-1.0); EOS # 0.1 10*3/uL (0.0-0.4); EOS % 2.5 % (1.0-4.0); HEMATOCRIT 38.9 % (37.0-47.0); HEMOGLOBIN 13.1 g/dl (12.0-16.0); LYMPH # 1.7 10*3/uL (1.3-4.4); LYMPH % 45.5 % (27.0-41.0); MEAN CELL VOLUME 104.3 fl (81.0-99.0); MEAN CORPUSCULAR HGB 35.1 pg (27.0-31.0); MEAN CORPUSCULAR HGB CONC 33.7 g/dl (33.0-37.0); MEAN PLATELET VOLUME 10.6 fl (9.6-12.3); MONO # 0.2 10*3/uL (0.1-1.0); MONO % 5.5 % (3.0-9.0); NEUT # 1.7 10*3/uL (2.3-7.9); NEUT % 45.6 % (47.0-73.0); PLATELET COUNT AUTOMATED 99 10*3/uL (130-400); RED BLOOD COUNT 3.73 10*6/uL (4.10-5.10); RED CELL DISTRI WIDTH 14.5 % (0-14.5); WHITE BLOOD COUNT 3.6 10*3/uL (4.8-10.8)
[2018-06-02 06:37] LABS: CHLORIDE 108 mmol/L (98-107); POTASSIUM 3.9 mmol/L (3.5-5.1); SODIUM 140 mmol/L (136-145)
[2018-06-02 06:49] LABS: ACT PARTIAL THROMBO TIME 24.1 SECONDS (20.8-31.5)
[2018-06-02 07:04] LABS: ALBUMIN 3.6 gm/dl (3.1-4.5); ALKALINE PHOSPHATASE 68 U/L (45-117); BUN 8 mg/dl (7-24); CHOLESTEROL 111 mg/dL (<200); HDL CHOLESTEROL 28 mg/dl (40-60); LDL CHOLESTEROL 57 mg/dL (9-159); SGOT/AST 37 IU/L (3-35); SGPT/ALT 62 U/L (12-78); TOTAL PROTEIN 6.9 gm/dL (6.4-8.2); TRIGLYCERIDES 131 mg/dl (<150); VLDL CHOLESTEROL 26 mg/dL (6-40)
[2018-06-02 07:07] LABS: VITAMIN D, 25-HYDROXY 40.6 ng/mL (30-100)
[2018-06-02 08:00] VITALS: BP 120/80
[2018-06-02] MEDS ORDERED: FLAGYL500 MG PO (10:53)
[2018-06-02] MEDS ORDERED: CIPRO500 MG PO (10:53)
== END 2018-06-02 12:46 | disposition home or self-care (01) | DRG 378 ==
LOC: ED 15:31 → EDHOLD 17:57 → 5E 17:57
PROVIDERS: Emergency Medicine; Student in an Organized Health Care Education/Training Program
DX: K92.2 Gastrointestinal hemorrhage, unspecified (principal); E87.2 Acidosis; R10.9 Unspecified abdominal pain; K59.01 Slow transit constipation; M17.10 Unilateral primary osteoarthritis, unspecified knee; K21.9 Gastro-esophageal reflux disease without esophagitis; G89.29 Other chronic pain; G43.909 Migraine, unspecified, not intractable, without status migrainosus; G25.81 Restless legs syndrome; F17.210 Nicotine dependence, cigarettes, uncomplicated; I45.81 Long QT syndrome; F41.9 Anxiety disorder, unspecified; F32.9 Major depressive disorder, single episode, unspecified; D70.9 Neutropenia, unspecified; D75.89 Other specified diseases of blood and blood-forming organs; Z90.710 Acquired absence of both cervix and uterus; Z85.41 Personal history of malignant neoplasm of cervix uteri; Z88.2 Allergy status to sulfonamides; Z80.9 Family history of malignant neoplasm, unspecified; Z79.899 Other long term (current) drug therapy

== ENCOUNTER 2018-12-04 00:47 | Emergency (ER) | payer MEDICARE ==
[~2018-12-04] VITALS: Ht 160 cm; Wt 63.5 kg
--- NOTE | ~2018-12-04 | EKG ---
[place], [place] ELECTROCARDIOGRAM REPORT NAME: MICHELLE JANG UNIT #: [id number] ROOM: DOCTOR: EPIPHANY DRAFT REPORT BIRTHDATE: [birth year] [facility] Test Date: 2018-12-04 Test Time: 01:23:16 Pat Name: MICHELLE JANG Department: Room: Gender: F Bilingual Recruiter: : 1955 Requested By: DL ARNOLD Order Number: [id number] Reading MD: Dhruv Pisano MD Measurements Intervals [place] Rate: 63 P: 46 SC: 161 QRS: 16 QRSD: 79 T: 59 QT: 437 QTc: 448 Interpretive Statements Sinus rhythm Compared to ECG 06/01/2018 16:47:33 No significant changes Electronically Signed On 12-06-2018 7:13:11 PDT by Dhruv Pisano MD CM:EKGRPT:ELECTROCARDIOGRAM REPORT [id number] DL ARNOLD MD EPIPHANY DRAFT REPORT DL ARNOLD MD
[~2018-12-04 00:47] MED LIST changes: +BUSPIRONE HCL10 MG PO; +CLONAZEPAM0.5 M2 PO; +DOXEPIN HCL50 MG PO; +FLAGYL500 MG PO; +NEURONTIN300 MG PO; +QUETIAPINE FUM300 M1 PO
[2018-12-04 01:41] LABS: BASO % 0.7 % (0.0-1.0); EOS # 0.1 10*3/uL (0.0-0.4); EOS % 2.5 % (1.0-4.0); HEMATOCRIT 42.8 % (37.0-47.0); LYMPH # 2.1 10*3/uL (1.3-4.4); LYMPH % 48.3 % (27.0-41.0); MEAN CELL VOLUME 99.3 fl (81.0-99.0); MEAN CORPUSCULAR HGB 32.5 pg (27.0-31.0); MEAN CORPUSCULAR HGB CONC 32.7 g/dl (33.0-37.0); MEAN PLATELET VOLUME 10.2 fl (9.6-12.3); MONO # 0.3 10*3/uL (0.1-1.0); MONO % 6.1 % (3.0-9.0); NEUT # 1.8 10*3/uL (2.3-7.9); NEUT % 41.5 % (47.0-73.0); PLATELET COUNT AUTOMATED 91 10*3/uL (130-400); RED BLOOD COUNT 4.31 10*6/uL (4.10-5.10); RED CELL DISTRI WIDTH 14.4 % (0-14.5); WHITE BLOOD COUNT 4.4 10*3/uL (4.8-10.8)
[2018-12-04 02:08] LABS: ALBUMIN 3.1 gm/dl (3.1-4.5); ALKALINE PHOSPHATASE 122 U/L (45-117); BUN 16 mg/dl (7-24); CHLORIDE 108 mmol/L (98-107); CREATININE 0.92 mg/dL (0.55-1.02); LIPASE 272 U/L (73-393); POTASSIUM 4.4 mmol/L (3.5-5.1); SGOT/AST 66 IU/L (3-35); SGPT/ALT 82 U/L (12-78); SODIUM 138 mmol/L (136-145); TOTAL PROTEIN 7.3 gm/dL (6.4-8.2)
[2018-12-04 02:14] LABS: TROPONIN I < 0.015 ng/ml (<0.045)
[2018-12-04 02:15] LABS: ACETAMINOPHEN (TYLENOL) < 5.0 ug/ml (10-30); ETHYL ALCOHOL < 3.0 mg/dl (<3)
[2018-12-04 02:58] LABS: BILIRUBIN NEGATIVE (NEGATIVE); BLOOD NEGATIVE (NEGATIVE); CLARITY CLEAR (CLEAR); COLOR YELLOW (YELLOW); GLUCOSE 1+ (NEGATIVE); KETONE NEGATIVE (NEGATIVE); LEUKO ESTERASE NEGATIVE (NEGATIVE); NITRITE NEGATIVE (NEGATIVE); PH 6.5 (5.0-9.0); UROBILINOGEN 0.2 E.U./dl (0.2-1.0)
[2018-12-04 03:10] LABS: URINE AMPHETAMINES < 1000 (1000ng/ml); URINE BARBITURATES < 200 (200ng/ml); URINE BENZODIAZEPINES < 200 (200ng/ml); URINE CANNABINOIDS (THC) < 50 (50ng/ml); URINE COCAINE < 300 (300ng/ml); URINE METHADONE < 300 (300ng/ml); URINE OPIATES < 300 (300ng/ml)
[2018-12-04 03:21] LABS: URINE PHENCYCLIDINE < 25 (25ng/ml)
[2018-12-04 03:36] LABS: BACTERIA TRACE
== END 2018-12-04 10:42 | disposition home or self-care (01) ==
LOC: ED 00:47
PROVIDERS: Emergency Medicine Emergency Medical Services
DX: F31.9 Bipolar disorder, unspecified (principal); R41.82 Altered mental status, unspecified; R53.1 Weakness; R42 Dizziness and giddiness; F41.9 Anxiety disorder, unspecified; K21.9 Gastro-esophageal reflux disease without esophagitis; G43.909 Migraine, unspecified, not intractable, without status migrainosus; M13.861 Other specified arthritis, right knee; R79.1 Abnormal coagulation profile; F17.200 Nicotine dependence, unspecified, uncomplicated; Z88.2 Allergy status to sulfonamides; Z79.899 Other long term (current) drug therapy

== ENCOUNTER 2018-12-10 12:18 | Inpatient (IN) | payer MEDICARE ==
[~2018-12-10] VITALS: Ht 160 cm; Wt 60.3 kg
--- NOTE | ~2018-12-10 | DS ---
[place], [place] DISCHARGE SUMMARY NAME[id number] UNIT #: [id number] ROOM: 311 DOCTOR: ISIDRA CAMARENA MD BIRTHDATE: [birth year] DOS: 12/13/2018 CHIEF COMPLAINT: "My memory is bad." HISTORY OF PRESENT ILLNESS: This is a 63-year-old white female with a long history of mood disorder, who presented to [facility] with a chief complaint of increased confusion. She was admitted to the medical floor initially. Once medically cleared, her confusion and depression persisted and it was felt that an inpatient stabilization was warranted. The patient has a history of polysubstance abuse and also has been misusing her prescribed psychiatric medicines. She was admitted to the U to rule out organic factors to stabilize on medication, to engage in individual and saavedra milieu activity, returning then to the least restrictive environment when psychiatrically stable. SUMMARY OF HOSPITAL COURSE: The patient was admitted to the unit where she was continued on her Seroquel 600 mg at bedtime, doxepin was discontinued in lieu of Remeron 15 mg at bedtime. The patient had a chance just to clear over the weekend without the use of benzodiazepines and sedative hypnotics. She initially was admitted to the unit, alert and oriented to self only. By the time Thursday came, she had cleared completely and was alert and oriented to person, place, and time. During Thursday's rounds, the patient reported good sleep and appetite. She convincingly denied suicidal thoughts, homicidal thoughts or any self-injurious thoughts and voiced positive plans for the future and discussed with me plan she had for [facility] with her family. She reported that the current medication regimen was effective and she was ready for discharge. MENTAL STATUS EXAMINATION: At discharge, the patient is alert and oriented to person, place, and time. Mood was euthymic. Affect appropriate. There is no azalia, hypomania, or psychosis. Short, intermediate, and long-term memory are intact. FINAL DIAGNOSES: Bipolar type 2 and polysubstance abuse. PLAN: All of her prescriptions have been E-scribed to [facility]. At the time of discharge, she was medically and psychiatrically stable. There were no acute issues at the time of discharge. [place], [place] DISCHARGE SUMMARY NAME: MICHELLE JANG UNIT #: [id number] ROOM: 311 DOCTOR: ISIDRA CAMARENA MD BIRTHDATE: [birth year] ISIDRA CAMARENA MD CM:DUSTIN [id number] ISIDRA CAMARENA MD 12/13/18 1316 interface
--- NOTE | ~2018-12-10 | PR ---
[place], [place] PROGRESS NOTE NAME: [id number] UNIT #: [id number] ROOM: 311 DOCTOR: RANDALL NOEL CNP BIRTHDATE: [birth year] DOS: 12/12/2018 CHIEF COMPLAINT: "I have got the diarrhea." SUMMARY OF THE VISIT: The patient was interviewed as she was walking in the hallway. The patient engaged readily in conversation with me, she reports that she has had diarrhea today. She does report not sleeping well last night, but Vistaril was effective to help her sleep. The patient reports her appetite has been good. She feels as if her mood is more stable. Staff reports that the patient was trying to seek pain medication from the medical doctor today. The Vistaril that was given last night to the patient was effective. The patient had been pacing in the hallways prior to this. MENTAL STATUS EXAMINATION: The patient is alert and oriented to person, place and time. She was pleasant and cooperative with me. No azalia or hypomania noted. No delusions or paranoia noted. No psychotic symptoms noted. No auditory or visual hallucinations noted. The patient's mood is calm. No agitation. Affect is congruent with mood. The patient's judgment and insight is fair. PLAN: I will discontinue the patient's doxepin. We will start Remeron 15 mg at bedtime to aid in sleep as well to stimulate appetite. The patient will continue lactulose 30 mg b.i.d. due to elevated ammonia levels. This will be the cause of her diarrhea. We will recheck her ammonia level on Thursday. Continue to encourage the patient to engage in individual and saavedra milieu activity. Continue fall and safety precautions. Plan to return the patient to the least restrictive environment when she is considered psychiatrically stable. Randall Noel CNP CM:PNTRANS [id number] RANDALL NOEL CNP 12/13/18 0330 interface
--- NOTE | ~2018-12-10 | WRIGHTHP ---
[place], [place] PATIENT HISTORY AND PHYSICAL EXAM [id number] UNIT #: [id number] ROOM: 311 DOCTOR: RANDALL NOEL CNP BIRTHDATE: [birth year] DOS: 12/11/2018 CHIEF COMPLAINT: "My memory is bad." HISTORY OF PRESENT ILLNESS: This is a 63-year-old white female with a history of mood disorder that presented to [facility] with a history of confusion. The patient had been admitted to the medical floor to be evaluated and treated. Once the patient was medically cleared from the medical floor, it was decided to admit her to Behavioral Health Unit to rule out further organic factors and attempt to stabilize her on her medication. Her granddaughter reports that she becomes confused when she runs out of her medications and that she sometimes takes more medication than is prescribed. We will encourage the patient to engage in individual and saavedra milieu activity. We will continue fall and safety precautions and we will plan to return the patient to the least restrictive environment when she is considered psychiatrically stable. PAST MEDICAL HISTORY: Remarkable for anxiety and depression, arthritis of her right knee, benzodiazepine dependence, bipolar, chronic pain, constipation, gastritis, GERD, macrocytosis, migraines, nicotine dependence, restless leg syndrome, seizure disorder, thrombocytopenia, tobacco use, cervical cancer. SOCIAL HISTORY: Positive for marijuana and cocaine use. The patient does smoke 1-2 packs per day and has done so since 16 years old. She denies alcohol use. STRENGTHS: The patient is ambulatory and has good verbal skills. WEAKNESSES: The patient has poor coping skills, polysubstance abuse and chronic pain. MENTAL STATUS: The patient is alert and oriented to person, place and time with some memory gaps. She was pleasant and cooperative with me. There is no overt azalia or hypomania noted. No delusions or paranoia noted. No psychotic symptoms noted. No auditory or visual hallucinations noted. Her mood was calm. Her affect was appropriate at the time of interview. Insight and judgment are fair. Thought process normal. Short and long-term memory appeared intact for the most part. DIAGNOSES: Bipolar disorder and polysubstance abuse. PLAN: The patient's labs are reviewed. The patient's labs, her liver functions are slightly elevated at 39 and 79, her ammonia level is elevated at 35. I did order lactulose 30 mg twice a day to bring the ammonia level down. We will recheck serum ammonia level on Thursday. The patient will continue Seroquel 600 mg at bedtime and doxepin 100 mg at bedtime. We will continue to monitor and support the patient. Continue to encourage the patient to engage in individual and saavedra milieu activity. We will continue fall and safety precautions. Plan is to return the patient to the least restrictive environment when she is considered psychiatrically stable. [place], [place] PATIENT HISTORY AND PHYSICAL EXAM NAME: MICHELLE JANG UNIT #: [id number] ROOM: [facility] DOCTOR: RANDALL NOEL CNP BIRTHDATE: [birth year] Randall Noel CNP CM:HISPHYS:PATIENT HISTORY AND PHYSICAL EXAMINATION 1337 1428 RANDALL NOEL CNP 12/11/18 1427 interface
[2018-12-10 14:38] VITALS: BP 150/81
[2018-12-10 15:06] VITALS: BP 150/81
[2018-12-10 15:36] LABS: BILIRUBIN 1+ (NEGATIVE); BLOOD TRACE-LYSED (NEGATIVE); CLARITY CLEAR (CLEAR); COLOR YELLOW (YELLOW); GLUCOSE NEGATIVE (NEGATIVE); KETONE 2+ (NEGATIVE); LEUKO ESTERASE NEGATIVE (NEGATIVE); NITRITE NEGATIVE (NEGATIVE); SPECIFIC GRAVITY >= 1.030 (1.005-1.030); UROBILINOGEN 0.2 E.U./dl (0.2-1.0)
[2018-12-10 15:44] LABS: BACTERIA 1+; EPITHELIAL CELLS 16-20; URINE AMPHETAMINES < 1000 (1000ng/ml); URINE BARBITURATES < 200 (200ng/ml); URINE BENZODIAZEPINES < 200 (200ng/ml); URINE CANNABINOIDS (THC) > 50 (50ng/ml); URINE COCAINE < 300 (300ng/ml); URINE METHADONE < 300 (300ng/ml); URINE OPIATES < 300 (300ng/ml)
[2018-12-10 15:46] LABS: URINE PHENCYCLIDINE < 25 (25ng/ml)
[2018-12-10 20:00] VITALS: BP 158/82
[2018-12-11 07:29] LABS: BASO % 0.4 % (0.0-1.0); EOS % 0.4 % (1.0-4.0); HEMATOCRIT 41.8 % (37.0-47.0); HEMOGLOBIN 13.9 g/dl (12.0-16.0); LYMPH # 1.9 10*3/uL (1.3-4.4); LYMPH % 39.6 % (27.0-41.0); MEAN CORPUSCULAR HGB 33.3 pg (27.0-31.0); MEAN CORPUSCULAR HGB CONC 33.3 g/dl (33.0-37.0); MEAN PLATELET VOLUME 10.4 fl (9.6-12.3); MONO # 0.4 10*3/uL (0.1-1.0); MONO % 7.6 % (3.0-9.0); NEUT # 2.5 10*3/uL (2.3-7.9); NEUT % 51.8 % (47.0-73.0); PLATELET COUNT AUTOMATED 93 10*3/uL (130-400); RED BLOOD COUNT 4.18 10*6/uL (4.10-5.10); RED CELL DISTRI WIDTH 14.6 % (0-14.5); WHITE BLOOD COUNT 4.9 10*3/uL (4.8-10.8)
[2018-12-11 07:49] VITALS: BP 158/82
[2018-12-11 08:02] LABS: ALBUMIN 3.7 gm/dl (3.1-4.5); BUN 18 mg/dl (7-24); CHLORIDE 110 mmol/L (98-107); POTASSIUM 3.6 mmol/L (3.5-5.1); SODIUM 142 mmol/L (136-145)
[2018-12-11 08:15] LABS: ALKALINE PHOSPHATASE 101 U/L (45-117); CHOLESTEROL 161 mg/dL (<200); CREATININE 0.78 mg/dL (0.55-1.02); HDL CHOLESTEROL 22 mg/dl (40-60); LDL CHOLESTEROL 121 mg/dL (9-159); SGOT/AST 39 IU/L (3-35); SGPT/ALT 79 U/L (12-78); TOTAL PROTEIN 7.6 gm/dL (6.4-8.2); TRIGLYCERIDES 89 mg/dl (<150); VLDL CHOLESTEROL 18 mg/dL (6-40)
[2018-12-11 20:00] VITALS: BP 146/80
[2018-12-12 07:40] VITALS: BP 141/70
[2018-12-12 20:00] VITALS: BP 146/72
[2018-12-13 07:52] VITALS: BP 127/89
[2018-12-13] MEDS ORDERED: QUETIAPINE FUM300 M1 PO (08:48)
[2018-12-13] MEDS ORDERED: LACTULOSE20 GM/30 M PO (08:48)
[2018-12-13] MEDS ORDERED: MIRTAZAPINE15 M2 PO (08:48)
[2018-12-14 11:08] LABS: NEURONTIN (GABAPENTIN) 2.9 ug/mL (4.0-16.0)
== END 2018-12-13 13:05 | disposition home or self-care (01) | DRG 885 ==
LOC: 3N 12:18
PROVIDERS: ADMIT Psychiatry & Neurology Psychiatry
DX: F31.60 Bipolar disorder, current episode mixed, unspecified (principal); G93.41 Metabolic encephalopathy; F13.20 Sedative, hypnotic or anxiolytic dependence, uncomplicated; B37.49 Other urogenital candidiasis; K59.01 Slow transit constipation; F12.90 Cannabis use, unspecified, uncomplicated; G40.909 Epilepsy, unspecified, not intractable, without status epilepticus; R74.0 Nonspecific elevation of levels of transaminase and lactic acid dehydrogenase [LDH]; R73.9 Hyperglycemia, unspecified; R74.8 Abnormal levels of other serum enzymes; F41.9 Anxiety disorder, unspecified; F17.210 Nicotine dependence, cigarettes, uncomplicated; E87.8 Other disorders of electrolyte and fluid balance, not elsewhere classified; E83.41 Hypermagnesemia; K29.70 Gastritis, unspecified, without bleeding; M17.11 Unilateral primary osteoarthritis, right knee; G89.29 Other chronic pain; G43.919 Migraine, unspecified, intractable, without status migrainosus; G25.81 Restless legs syndrome; K21.9 Gastro-esophageal reflux disease without esophagitis; Z71.6 Tobacco abuse counseling; Z90.710 Acquired absence of both cervix and uterus; Z80.8 Family history of malignant neoplasm of other organs or systems; Z88.2 Allergy status to sulfonamides; Z79.899 Other long term (current) drug therapy

== ENCOUNTER → 2019-04-21 | Outpatient (CLI) | payer MEDICARE ==
[~2019-04-21] MED LIST changes: +LACTULOSE20 GM/30 M PO; +MIRTAZAPINE15 M2 PO
[2019-04-21 14:43] LABS: BASO % 0.8 % (0.0-1.0); EOS # 0.1 10*3/uL (0.0-0.4); EOS % 2.9 % (1.0-4.0); HEMATOCRIT 42.1 % (37.0-47.0); HEMOGLOBIN 13.4 g/dl (12.0-16.0); LYMPH # 1.7 10*3/uL (1.3-4.4); LYMPH % 45.1 % (27.0-41.0); MEAN CELL VOLUME 105.5 fl (81.0-99.0); MEAN CORPUSCULAR HGB 33.6 pg (27.0-31.0); MEAN CORPUSCULAR HGB CONC 31.8 g/dl (33.0-37.0); MEAN PLATELET VOLUME 11.1 fl (9.6-12.3); MONO # 0.2 10*3/uL (0.1-1.0); MONO % 6.3 % (3.0-9.0); NEUT # 1.7 10*3/uL (2.3-7.9); NEUT % 44.4 % (47.0-73.0); PLATELET COUNT AUTOMATED 83 10*3/uL (130-400); RED BLOOD COUNT 3.99 10*6/uL (4.10-5.10); RED CELL DISTRI WIDTH 14.1 % (0-14.5); WHITE BLOOD COUNT 3.8 10*3/uL (4.8-10.8)
[2019-04-21 15:08] LABS: ALBUMIN 3.4 gm/dl (3.1-4.5); ALKALINE PHOSPHATASE 99 U/L (45-117); BUN 8 mg/dl (7-24); CHLORIDE 109 mmol/L (98-107); CREATININE 0.91 mg/dL (0.55-1.02); FREE T4 0.79 ng/dl (0.76-1.46); SGOT/AST 94 IU/L (3-35); SGPT/ALT 69 U/L (12-78); SODIUM 144 mmol/L (136-145); TOTAL PROTEIN 6.8 gm/dL (6.4-8.2)
== END | disposition home or self-care (01) ==
LOC: LAB 14:04
PROVIDERS: Family Medicine
DX: E55.9 Vitamin D deficiency, unspecified (principal); F32.9 Major depressive disorder, single episode, unspecified; R56.9 Unspecified convulsions; G93.41 Metabolic encephalopathy; E53.8 Deficiency of other specified B group vitamins; R29.6 Repeated falls; G89.29 Other chronic pain; E11.9 Type 2 diabetes mellitus without complications; I10 Essential (primary) hypertension; M54.2 Cervicalgia; M54.9 Dorsalgia, unspecified

== ENCOUNTER 2019-05-25 14:51 | Emergency (ER) | payer MEDICARE ==
[~2019-05-25] VITALS: Ht 160 cm; Wt 63.0 kg
[2019-05-25] MEDS ORDERED: PREDNISONE20 M1 PO (16:23)
[2019-05-25] MEDS ORDERED: TESSALON PERLE100 M1 PO (16:23)
== END 2019-05-25 16:33 | disposition home or self-care (01) ==
LOC: ED 14:51
DX: M54.2 Cervicalgia (principal); R51 Headache; R05 Cough; R56.9 Unspecified convulsions; J34.89 Other specified disorders of nose and nasal sinuses; F17.200 Nicotine dependence, unspecified, uncomplicated; Z88.2 Allergy status to sulfonamides; Z79.899 Other long term (current) drug therapy; Z90.710 Acquired absence of both cervix and uterus; W06.XXXA Fall from bed, initial encounter; Y93.89 Activity, other specified; Y92.098 Other place in other non-institutional residence as the place of occurrence of the external cause; Y99.8 Other external cause status

== ENCOUNTER 2019-06-19 22:14 | Inpatient (IN) | payer MEDICARE ==
[~2019-06-19] VITALS: Ht 160 cm; Wt 63.2 kg
--- NOTE | ~2019-06-19 | EKG ---
[place], [place] ELECTROCARDIOGRAM REPORT NAME: MICHELLE JANG UNIT #: [id number] ROOM: 503 DOCTOR: KAT DRAFT REPORT BIRTHDATE: [birth year] [facility] Test Date: 2019-06-19 Test Time: 22:49:55 Pat Name: MICHELLE JANG Department: Room: 503 Gender: F Automotive Parts Counterperson: Gabbi Steiner : 1955 Requested By: SIERRA MADSEN Order Number: [id number] Reading MD: Kneny Da Silva MD Measurements Intervals [place] Rate: 100 P: 52 TN: 186 QRS: 2 QRSD: 84 T: 34 QT: 385 QTc: 497 Interpretive Statements Sinus tachycardia Consider left atrial enlargement Borderline prolonged QT interval Electronically Signed On 06-20-2019 5:07:16 PDT by Kenny Da Silva MD CM:EKGRPT:ELECTROCARDIOGRAM REPORT [id number] SIERRA ELIZABETH DRAFT REPORT SIERRA MADSEN DO
--- NOTE | ~2019-06-19 | EKG ---
[place], [place] ELECTROCARDIOGRAM REPORT NAME: MICHELLE JANG UNIT #: [id number] ROOM: 503 DOCTOR: KAT DRAFT REPORT BIRTHDATE: [birth year] [facility] Test Date: 2019-06-20 Test Time: 01:06:36 Pat Name: MICHELLE JANG Department: Room: 503 Gender: F Screener And Blender Operator: Gabbi Steiner : 1955 Requested By: SIERRA MADSEN Order Number: [id number] Reading MD: Kenny Da Silva MD Measurements Intervals [place] Rate: 80 P: 57 [place]: 171 QRS: 17 QRSD: 84 T: 37 QT: 402 QTc: 464 Interpretive Statements Sinus rhythm Compared to ECG 12/09/2018 22:21:59 No significant changes Electronically Signed On 06-20-2019 5:07:25 PDT by Kenny Da Silva MD CM:EKGRPT:ELECTROCARDIOGRAM REPORT [id number] 0507 SIERRA ELIZABETH DRAFT REPORT SIERRA MADSEN DO
--- NOTE | ~2019-06-19 | CON ---
[place], [place] REPORT OF CONSULTATION [id number] UN[facility] #: [id number] ROOM: 503 DOCTOR: ALANIS ALVARADO BIRTHDATE: [birth year] DOS: 06/20/2019 CARDIOLOGY CONSULTATION REASON FOR CONSULTATION: Chest pain. REQUESTING PHYSICIAN: Luisa Connors CNP. HISTORY OF PRESENT ILLNESS: The patient is a 64-year-old female with no prior cardiac history, she has history of bipolar disorder and anxiety and current tobacco smoker. She presents with a 2-day history of constant chest pain that started after she was cleaning her house. She describes it as pressure, left-sided, nonradiating that was constant, it started when she was at rest. No associated shortness of breath, diaphoresis or nausea. She stated lying on her side and clutching it with her hand would actually relieve the pain. No other exacerbating or relieving factors. She also noticed some discoloration of her left hand that prompted her to come to the Emergency Room for evaluation. Initial troponin was negative, second troponin was mildly abnormal at 0.049 and then third one came back down to normal. There are no acute EKG changes. The patient states chest pain resolved when she woke up this morning, again had been continuous until she woke up today. She has had no prior cardiac evaluations that she is aware of. Her brother in his 40s from an ID. REVIEW OF SYSTEMS: Complete review of systems negative except as described above. PAST MEDICAL HISTORY: Anxiety, bipolar. PAST SURGICAL HISTORY: Hysterectomy. SOCIAL HISTORY: Smokes half a pack a day, used to smoke a full pack a day. Denies alcohol use. Denies any illicit drug use, though the chart reflects cocaine and marijuana history. FAMILY HISTORY: Both parents are . No heart disease in the parents. Her brother at the age of 40 from an ID. HOME MEDICATIONS: Include Clonazepam, doxepin, gabapentin, levetiracetam, quetiapine, sumatriptan. PHYSICAL EXAMINATION: VITAL SIGNS: Afebrile, pulse 83, respirations 20, blood pressure 122/65, saturating 98% on room air. GENERAL APPEARANCE: Slender, middle-aged female, lying in bed, in no distress. EYES: Normal. ENT: Shows moist mucous membranes. NECK: Supple. JVP is normal. No carotid bruits. RESPIRATORY: Lungs are clear. CARDIOVASCULAR: Regular rhythm with normal rate. No murmurs. The chest wall [place], [place] REPORT OF CONSULTATION NAME: MICHELLE JANG UNIT #: [id number] ROOM: [facility] DOCTOR: ALANIS ALVARADO BIRTHDATE: [birth year] was tender to palpation, reproducing similar chest pain. ABDOMEN: Positive bowel sounds. Soft, nontender. EXTREMITIES: Warm, well perfused. Free of edema. LABORATORY DATA: White blood cell count 2.9, hemoglobin 13.9, platelets 85. Potassium 3.6, BUN 7, creatinine 0.69. Hemoglobin A1c is 6.3%. AST is 85, ALT 74, LDL 97. Troponin peaked at 0.049 and came down. EKG showed sinus rhythm, rate of 79 beats per minute with normal axis and normal intervals. No acute ST or T-wave abnormalities. QT is mildly prolonged with QTC of 497. The previous EKG showed also sinus rhythm with no acute changes. QTC was 464. Of note, she is on quetiapine and some other psychoactive medications. IMPRESSION: 1. Atypical chest pain, with mildly abnormal troponin and multiple cardiac risk factors. 2. Borderline diabetes with A1c of 6.3%. 3. Leukopenia and thrombocytopenia. 4. Tobacco abuse. RECOMMENDATIONS: 1. Agree with a stress test, which will be performed today. 2. She needs aggressive risk factor modification, smoking cessation encouraged. 3. We will defer evaluation of blood count abnormalities to primary team. 4. Further recommendations pending outcome of stress test. If negative, she can be discharged home. Dr. ALANIS ALVARADO MD CM:CONSTR:REPORT OF CONSULTATION 0917 06/21/19 0751 interface
--- NOTE | ~2019-06-19 | EKG ---
[place], [place] ELECTROCARDIOGRAM REPORT NAME: MICHELLE JANG UNIT #: [id number] ROOM: 503 DOCTOR: KAT DRAFT REPORT BIRTHDATE: [birth year] [facility] Test Date: 2019-06-20 Test Time: 04:23:12 Pat Name: MICHELLE JANG Department: Room: 503 Gender: F Gang Hemstitching Machine Operator: Gabbi Steiner : 1955 Requested By: SIERRA MADSEN Order Number: [id number] Reading MD: Kenny Da Silva MD Measurements Intervals [place] Rate: 79 P: 54 [place]: 181 QRS: 28 QRSD: 84 T: 42 QT: 433 QTc: 497 Interpretive Statements Sinus rhythm Borderline prolonged QT interval Compared to ECG 12/09/2018 22:21:59 No significant changes Electronically Signed On 06-20-2019 5:07:34 PDT by Kenny Da Silva MD CM:EKGRPT:ELECTROCARDIOGRAM REPORT [id number] 0507 SIERRA ELIZABETH DRAFT REPORT SIERRA MADSEN DO
--- NOTE | ~2019-06-19 | ST ---
[place], [place] EXERCISE STRESS TEST REPORT [id number] UNIT #: [id number] ROOM: 503 DOCTOR: ALANIS ALVARADO BIRTHDATE: [birth year] DOS: 06/20/2019 INDICATION: Chest pain. PROTOCOL: Exercise SPECT myocardial perfusion imaging, Niko protocol. Baseline EKG showed sinus rhythm with a rate of 93 beats per minute with a normal axis and normal intervals. No resting ST or T-wave abnormalities. Baseline blood pressure 124/62. The patient exercised for a total of 6 minutes 15 seconds, achieving a peak heart rate of 135, which is 87% of the predicted maximum. Peak blood pressure was 146/70. The patient reported no chest pain. Total workload achieved was 7.1 METs, which is average for age. Stress EKG showed no evidence of ischemia and no arrhythmias were noted. Occasional PVCs were noted during exercise and in recovery. IMPRESSION: 1. No evidence of ischemia on stress EKG. 2. Normal blood pressure response to exercise. 3. Blunted heart rate recovery. 4. Average functional capacity. 5. Occasional PVCs noted. 6. Nuclear images to be reported separately. Dr. ALANIS ALVARADO MD CM:STRESS:EXERCISE STRESS TEST REPORT [id number] 1342 ALANIS ALVARADO
[~2019-06-19 22:14] MED LIST changes: +PREDNISONE20 M1 PO; +TESSALON PERLE100 M1 PO
[2019-06-19 22:17] VITALS: BP 151/79
[2019-06-19 22:33] LABS: BASO % 0.8 % (0.0-1.0); EOS # 0.1 10*3/uL (0.0-0.4); EOS % 2.1 % (1.0-4.0); HEMATOCRIT 42.2 % (37.0-47.0); HEMOGLOBIN 13.7 g/dl (12.0-16.0); LYMPH # 1.2 10*3/uL (1.3-4.4); MEAN CELL VOLUME 103.9 fl (81.0-99.0); MEAN CORPUSCULAR HGB 33.7 pg (27.0-31.0); MEAN CORPUSCULAR HGB CONC 32.5 g/dl (33.0-37.0); MEAN PLATELET VOLUME 10.4 fl (9.6-12.3); MONO # 0.1 10*3/uL (0.1-1.0); MONO % 4.6 % (3.0-9.0); NEUT # 1.1 10*3/uL (2.3-7.9); NEUT % 43.5 % (47.0-73.0); PLATELET COUNT AUTOMATED 91 10*3/uL (130-400); RED BLOOD COUNT 4.06 10*6/uL (4.10-5.10); WHITE BLOOD COUNT 2.4 10*3/uL (4.8-10.8)
[2019-06-19 22:44] LABS: ACT PARTIAL THROMBO TIME 29.9 SECONDS (20.0-32.1); INTERNATIONAL NORM RATIO 1.1 (2.0-3.5)
[2019-06-19 22:49] LABS: ALBUMIN 3.2 gm/dl (3.1-4.5); ALKALINE PHOSPHATASE 121 U/L (45-117); BUN 9 mg/dl (7-24); CHLORIDE 105 mmol/L (98-107); CREATININE 0.79 mg/dL (0.55-1.02); POTASSIUM 4.1 mmol/L (3.5-5.1); SGOT/AST 102 IU/L (3-35); SGPT/ALT 79 U/L (12-78); SODIUM 136 mmol/L (136-145); TOTAL PROTEIN 7.3 gm/dL (6.4-8.2)
[2019-06-19 22:50] LABS: TROPONIN I < 0.015 ng/ml (<0.045)
--- NOTE | 2019-06-19 23:40 | NUR ---
REMAINS ASLEEP ON LEFT SIDE IN NO OBVIOUS DISTRESS. CARDAIC MONITOR READS NSR AT THIS TIME.
[2019-06-19 23:45] VITALS: BP 122/65
--- NOTE | 2019-06-19 23:54 | NUR ---
DR MADSEN IN TO UPDATE ON PLAN TO ADMIT.
--- NOTE | 2019-06-20 00:01 | NUR ---
REMAINS ASLEEP AND IN NO OBVIOUS DISTRESS.
--- NOTE | 2019-06-20 00:10 | NUR ---
SPOKE WITH MILLA TO NOTIFY OF ETA TO ROOM.
--- NOTE | 2019-06-20 00:19 | NUR ---
A 64, admitted to 5E, under the services of DEVIN Nolasco DO with a diagnosis of CHEST PAIN. Chief complaint is CHEST PAIN. Patient arrived via stretcher from ER. Monitor applied. Initial assessment completed. Vital signs taken and recorded. DEVIN NOLASCO DO notified of admission to the unit. Orders received. See assessment for past medical history, medications and allergies. Patient and/or family oriented to unit. Clothing/patient valuable form completed. [facility] [place]
[2019-06-20] MEDS ORDERED: DOXEPIN HCL50 MG PO (00:51)
[2019-06-20] MEDS ORDERED: NEURONTIN300 MG PO (00:55)
[2019-06-20] MEDS ORDERED: SUMATRIPTAN SUC50 M1 PO (00:56)
[2019-06-20] MEDS ORDERED: CLONAZEPAM0.5 M2 PO (00:58)
[2019-06-20] MEDS ORDERED: PROAIR HFA8.5 GM INH (00:58)
[2019-06-20] MEDS ORDERED: ALA-CORT28.4 GM T (00:59)
[2019-06-20] MEDS ORDERED: LEVETIRACETAM500 MG PO (01:00)
[2019-06-20] MEDS ORDERED: MELOXICAM7.5 MG PO (01:00)
[2019-06-20] MEDS ORDERED: OMEPRAZOLE MAGN20 MG PO (01:01)
[2019-06-20] MEDS ORDERED: CALCIUM 500 +1 EAC1 PO (01:02)
--- NOTE | 2019-06-20 01:35 | NUR ---
NOTIFIED OF CRITICAL TROPONIN OF 0.049. NO NEW ORDERS RECEIVED.
--- NOTE | 2019-06-20 03:34 | NUR ---
Patient sleeping. Respirations relaxed and easy. Siderails up . [place] on. No distress noted. Call light within reach. Will continue to monitor. [facility] [place]
--- NOTE | 2019-06-20 07:05 | NUR ---
ARRIVED ON SHIFT, PATIENT DID NOT AWAKEN FOR BEDSIDE REPORT, WHITE BOARD UPDATED, RECEIVED CALL FROM STEVEN Noonan ADVISED THAT PATIENT IS TO BE NPO UNTIL SHE SEES HER.
--- NOTE | 2019-06-20 08:03 | NUR ---
Shift chart check completed.
--- NOTE | 2019-06-20 08:23 | NUR ---
CALL PLACED TO [facility], SPOKE WITH AZAM WHITTEN OF [place] FOR DR. ALVARADO.
[2019-06-20 08:36] LABS: BASO % 0.7 % (0.0-1.0); EOS # 0.1 10*3/uL (0.0-0.4); EOS % 2.4 % (1.0-4.0); HEMATOCRIT 42.6 % (37.0-47.0); HEMOGLOBIN 13.9 g/dl (12.0-16.0); LYMPH # 1.5 10*3/uL (1.3-4.4); LYMPH % 51.7 % (27.0-41.0); MEAN CELL VOLUME 103.1 fl (81.0-99.0); MEAN CORPUSCULAR HGB 33.7 pg (27.0-31.0); MEAN CORPUSCULAR HGB CONC 32.6 g/dl (33.0-37.0); MEAN PLATELET VOLUME 10.9 fl (9.6-12.3); MONO # 0.2 10*3/uL (0.1-1.0); MONO % 5.9 % (3.0-9.0); NEUT # 1.1 10*3/uL (2.3-7.9); NEUT % 39.3 % (47.0-73.0); PLATELET COUNT AUTOMATED 85 10*3/uL (130-400); RED BLOOD COUNT 4.13 10*6/uL (4.10-5.10); WHITE BLOOD COUNT 2.9 10*3/uL (4.8-10.8)
[2019-06-20 08:50] LABS: RETICULOCYTE % 2.33 % (0.50-2.50)
[2019-06-20 08:54] LABS: ALBUMIN 3.4 gm/dl (3.1-4.5); ALKALINE PHOSPHATASE 114 U/L (45-117); BUN 7 mg/dl (7-24); CHLORIDE 108 mmol/L (98-107); CREATININE 0.69 mg/dL (0.55-1.02); POTASSIUM 3.6 mmol/L (3.5-5.1); SGOT/AST 85 IU/L (3-35); SGPT/ALT 74 U/L (12-78); SODIUM 141 mmol/L (136-145); TOTAL PROTEIN 7.3 gm/dL (6.4-8.2)
[2019-06-20 08:57] LABS: FREE T4 0.73 ng/dl (0.76-1.46); PHOSPHOROUS 3.1 mg/dL (2.5-4.9)
[2019-06-20 09:04] LABS: THYROID STIM HORMONE (HS) 3.17 uIU/ml (0.358-4.75)
--- NOTE | 2019-06-20 11:48 | NUR ---
OFF FLOOR AT THIS TIME FOR STRESS TEST.
[2019-06-20 12:00] VITALS: BP 149/87
--- NOTE | 2019-06-20 12:40 | NUR ---
INFORMED SIGNED CONSENT OBTAINED FOR C-GXT WITH DR GONZALEZ. RESTING EKG NSR HR 93 BP 124/62 IN SUPINE POSTION, STANDING HR 95 BP 118/66. PT COMPLETED 6:15 OF A HARDIK PROTOCOL WITH PT COMPLETING STAGE II AT 2.5 MPH AND A 12% GRADE. PT REACHED A PEAK HR OF 135 WHICH REPRESENTS 85% OF PREDICTED MAXIMUM AND A PEAK BP OF 146/70. FREQUENT PVC'S NOTED. NO ST CHANGES SEEN. TEST TERMINATED DUE TO FATIGUE. LAST RECOVERY HR OF 112 BP 124/74.
--- NOTE | 2019-06-20 13:36 | NUR ---
STRESS TEST WAS NORMAL PER . STEVEN RODRIGUEZ INFORMED, PT WILL BE DISCHARGED LATER TODAY.
--- NOTE | 2019-06-20 15:13 | NUR ---
Discharge instructions reviewed with patient/family. Patient receptive and verbalizes understanding. Follow-up care arranged. Written instructions given to patient/family. CASSI ADAMS
== END 2019-06-20 15:13 | disposition home or self-care (01) | DRG 392 ==
LOC: ED 22:14 → 5E 06-20 00:01 → EDHOLD 06-20 00:01 → 5E 06-20 00:07
PROVIDERS: Emergency Medicine; Internal Medicine; Registered Nurse; ADMIT Internal Medicine
PROC: 4A02XM4 Measurement of Cardiac Total Activity, External Approach (ICD-10-PCS; principal; 2019-06-20)
PROC: 3E073KZ Introduction of Other Diagnostic Substance into Coronary Artery, Percutaneous Approach (ICD-10-PCS; 2019-06-20)
DX: K21.9 Gastro-esophageal reflux disease without esophagitis (principal); E44.0 Moderate protein-calorie malnutrition; R65.10 Systemic inflammatory response syndrome (SIRS) of non-infectious origin without acute organ dysfunction; F41.9 Anxiety disorder, unspecified; M17.11 Unilateral primary osteoarthritis, right knee; F31.9 Bipolar disorder, unspecified; G89.29 Other chronic pain; G43.909 Migraine, unspecified, not intractable, without status migrainosus; G25.81 Restless legs syndrome; F14.90 Cocaine use, unspecified, uncomplicated; F12.90 Cannabis use, unspecified, uncomplicated; R74.0 Nonspecific elevation of levels of transaminase and lactic acid dehydrogenase [LDH]; D75.89 Other specified diseases of blood and blood-forming organs; D69.6 Thrombocytopenia, unspecified; E55.9 Vitamin D deficiency, unspecified; E67.8 Other specified hyperalimentation; E87.8 Other disorders of electrolyte and fluid balance, not elsewhere classified; D72.819 Decreased white blood cell count, unspecified; Z66 Do not resuscitate; Z51.5 Encounter for palliative care; Z83.3 Family history of diabetes mellitus; Z87.891 Personal history of nicotine dependence; Z82.49 Family history of ischemic heart disease and other diseases of the circulatory system; Z85.89 Personal history of malignant neoplasm of other organs and systems; Z68.24 Body mass index [BMI] 24.0-24.9, adult; Z87.19 Personal history of other diseases of the digestive system; Z80.9 Family history of malignant neoplasm, unspecified; Z88.2 Allergy status to sulfonamides; Z79.899 Other long term (current) drug therapy

== ENCOUNTER 2020-01-07 18:56 | Emergency (ER) | payer SELFPAY ==
[~2020-01-07] VITALS: Ht 160 cm; Wt 59.0 kg
[~2020-01-07 18:56] MED LIST changes: +ALA-CORT28.4 GM T; +CALCIUM 500 +1 EAC1 PO; +LEVETIRACETAM500 MG PO; +MELOXICAM7.5 MG PO; +OMEPRAZOLE MAGN20 MG PO; +PROAIR HFA8.5 GM INH; +SUMATRIPTAN SUC50 M1 PO
== END 2020-01-07 19:40 | disposition home or self-care (01) ==
LOC: ED 18:56
DX: L02.811 Cutaneous abscess of head [any part, except face] (principal); L03.811 Cellulitis of head [any part, except face]; J44.9 Chronic obstructive pulmonary disease, unspecified; K21.9 Gastro-esophageal reflux disease without esophagitis; E78.00 Pure hypercholesterolemia, unspecified; F17.200 Nicotine dependence, unspecified, uncomplicated; Z88.2 Allergy status to sulfonamides; Z79.899 Other long term (current) drug therapy; Z90.710 Acquired absence of both cervix and uterus

== ENCOUNTER 2020-03-28 07:01 | Emergency (ER) | payer OTHER ==
[~2020-03-28] VITALS: Wt 63.0 kg
[2020-03-28] MEDS ORDERED: KLONOPIN0.5 MG PO (07:35)
== END 2020-03-28 07:40 | disposition home or self-care (01) ==
LOC: ED 07:01
DX: F41.9 Anxiety disorder, unspecified (principal); J44.9 Chronic obstructive pulmonary disease, unspecified; K21.9 Gastro-esophageal reflux disease without esophagitis; F32.9 Major depressive disorder, single episode, unspecified; E78.00 Pure hypercholesterolemia, unspecified; Z88.2 Allergy status to sulfonamides; Z79.899 Other long term (current) drug therapy; Z90.710 Acquired absence of both cervix and uterus; Z87.891 Personal history of nicotine dependence

== ENCOUNTER → 2020-04-24 | Outpatient (CLI) | payer OTHER ==
[~2020-04-24] MED LIST changes: +KLONOPIN0.5 MG PO
== END ==
LOC: LAB 14:29
DX: Z79.899 Other long term (current) drug therapy (principal)

== ENCOUNTER 2020-06-09 12:11 | Observation (INO) | payer OTHER ==
[~2020-06-09] VITALS: Ht 160 cm; Wt 62.8 kg
[2020-06-09 12:24] VITALS: BP 145/69
[2020-06-09 13:13] LABS: BASO % 0.9 % (0.0-1.0); EOS # 0.1 10*3/uL (0.0-0.4); EOS % 2.2 % (1.0-4.0); HEMATOCRIT 38.8 % (37.0-47.0); LYMPH % 44.3 % (27.0-41.0); MEAN CELL VOLUME 102.4 fl (81.0-99.0); MEAN CORPUSCULAR HGB CONC 32.2 g/dl (33.0-37.0); MEAN PLATELET VOLUME 10.9 fl (9.6-12.3); MONO # 0.1 10*3/uL (0.1-1.0); MONO % 5.7 % (3.0-9.0); NEUT # 1.1 10*3/uL (2.3-7.9); NEUT % 46.9 % (47.0-73.0); PLATELET COUNT AUTOMATED 69 10*3/uL (130-400); RED BLOOD COUNT 3.79 10*6/uL (4.10-5.10); RED CELL DISTRI WIDTH 14.6 % (0-14.5); WHITE BLOOD COUNT 2.3 10*3/uL (4.8-10.8)
[2020-06-09 13:23] LABS: ACT PARTIAL THROMBO TIME 30.5 SECONDS (20.0-32.1); INTERNATIONAL NORM RATIO 1.1 (2.0-3.5)
[2020-06-09 13:38] LABS: BILIRUBIN Negative (Negative); BLOOD Negative (Negative); CLARITY Cloudy (Clear); COLOR Yellow (Yellow); GLUCOSE Negative (Negative); KETONE Negative (Negative); LEUKO ESTERASE Trace (Negative); NITRITE Negative (Negative); PH 6.5 (4.5-8.0)
--- NOTE | 2020-06-09 13:38 | NUR ---
DAUGHTER IS LEAVING AT THIS TIME, DERRELL [phone]
[2020-06-09 13:49] LABS: BACTERIA 3+
[2020-06-09 14:01] LABS: URINE AMPHETAMINES < 1000 (1000ng/ml); URINE BARBITURATES < 200 (200ng/ml); URINE BENZODIAZEPINES < 200 (200ng/ml); URINE CANNABINOIDS (THC) > 50 (50ng/ml); URINE COCAINE < 300 (300ng/ml); URINE METHADONE < 300 (300ng/ml); URINE OPIATES < 300 (300ng/ml)
[2020-06-09 14:06] LABS: ALBUMIN 3.5 gm/dl (3.1-4.5); ALKALINE PHOSPHATASE 107 U/L (45-117); BUN 11 mg/dl (7-24); CHLORIDE 119 mmol/L (98-107); CREATININE 0.86 mg/dL (0.55-1.02); POTASSIUM 4.2 mmol/L (3.5-5.1); SGOT/AST 79 IU/L (3-35); SGPT/ALT 90 U/L (12-78); SODIUM 145 mmol/L (136-145); TOTAL PROTEIN 7.3 gm/dL (6.4-8.2)
[2020-06-09 14:06] LABS: URINE PHENCYCLIDINE < 25 (25ng/ml)
[2020-06-09 14:07] LABS: ETHYL ALCOHOL < 3.0 mg/dl (<3); TROPONIN I < 0.015 ng/ml (<0.045)
--- NOTE | 2020-06-09 14:15 | NUR ---
PT IS SLEEPING, RESPS EASY.
[2020-06-09 14:30] VITALS: BP 130/60
[2020-06-09 15:00] VITALS: BP 155/75
--- NOTE | 2020-06-09 15:00 | NUR ---
A 65, admitted to , under the services of SCHUYLER Loyd DO with a diagnosis of HEPATIC ENCEPHALOPATHY. Chief complaint is CHANGE IN MENTAL STATUS. Patient arrived via bed from ER. Monitor applied. Initial assessment completed. Vital signs taken and recorded. SCHUYLER LOYD DO notified of admission to the unit. Orders received. See assessment for past medical history, medications and allergies. Patient and/or family oriented to unit. [facility] visitation policy reviewed. Clothing/patient valuable form completed. STEPHANIE RAMIREZ
[2020-06-09] MEDS ORDERED: LORAZEPAM1 MG PO (15:07)
[2020-06-09] MEDS ORDERED: BUSPIRONE HCL10 MG PO (15:08)
[2020-06-09] MEDS ORDERED: ROPINIROLE HYD0.5 MG PO (15:08)
[2020-06-09] MEDS ORDERED: ENULOSE10 GM/151 PO (16:00)
[2020-06-09] MEDS ORDERED: NATURE'S BLEND F1 MG PO (16:04)
[2020-06-09] MEDS ORDERED: MOBIC7.5 MG PO (16:06)
--- NOTE | 2020-06-09 16:08 | NUR ---
DR REYES NOTIFIED THAT PT MED REC IS UP TO DATE PER [facility] MED LIST.
--- NOTE | 2020-06-09 16:54 | NUR ---
PT GIVEN 1 TIME DOSE OF 1 MG PO ATIVAN FOR C/O ANXIETY. WILL MONITOR FOR EFFECTIVENESS. CALL LIGHT IN REACH.
--- NOTE | 2020-06-09 17:54 | NUR ---
PT STATES THAT ATIVAN IS EFFECTIVE.
--- NOTE | 2020-06-09 19:10 | NUR ---
PT IS FOUND TO BE WALKING DOWN [place] IN HER PERSONAL CLOTHES. WHEN ASKED WHERE SHE IS GOING, PT REPLIES THAT SHE IS LEAVING AND THAT SHE FEELS BETTER. PT WALKS TO [facility] WHERE 3 STAFFMEMBERS ARE ABLE TO TALK WITH HER AND ENCOURAGE HER TO WALK BACK TO HER ROOM. IT IS EXPLAINED TO PT THAT IF SHE DOES LEAVE, WE WOULD NEED TO REMOVE HER IV CATHETER FROM HER HAND AND FILL OUT APPROPRIATE PAPERWORK. PT IS SITTING IN BED AT THIS TIME. BED ALARM IN PLACE. DR CRAIG IS CALLED REGARDING THIS MATTER AND STATES THAT HE WILL BE UP TO THE FLOOR TO SPEAK WITH PATIENT.
[2020-06-09 20:00] VITALS: BP 138/65
--- NOTE | 2020-06-09 20:13 | NUR ---
PATIENT MEDICATED WITH ATIVAN 1MG FOR MULTIPLE ATTEMPTS OF TRYING TO LEAVE BUILDING. PATIENT ALSO MEDICATED WITH RESTORIL AT THIS TIME FOR INSOMNIA. BED ALARM APPLIED. WILL CONTINUE TO MONITOR. CALL LIGHT IN REACH.
--- NOTE | 2020-06-09 20:36 | NUR ---
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 DR. CHATMAN NOTIFIED.
--- NOTE | 2020-06-09 20:41 | NUR ---
SISTER UPDATED ON PATIENT CARE/CONDITION.
[2020-06-10] VITALS: BP 119/64
[2020-06-10 06:58] LABS: BASO % 0.7 % (0.0-1.0); EOS # 0.1 10*3/uL (0.0-0.4); EOS % 2.5 % (1.0-4.0); HEMATOCRIT 42.9 % (37.0-47.0); LYMPH # 1.1 10*3/uL (1.3-4.4); LYMPH % 41.1 % (27.0-41.0); MEAN CELL VOLUME 103.1 fl (81.0-99.0); MEAN CORPUSCULAR HGB 33.2 pg (27.0-31.0); MEAN CORPUSCULAR HGB CONC 32.2 g/dl (33.0-37.0); MEAN PLATELET VOLUME 11.2 fl (9.6-12.3); MONO # 0.2 10*3/uL (0.1-1.0); MONO % 6.9 % (3.0-9.0); NEUT # 1.3 10*3/uL (2.3-7.9); NEUT % 48.8 % (47.0-73.0); PLATELET COUNT AUTOMATED 74 10*3/uL (130-400); RED BLOOD COUNT 4.16 10*6/uL (4.10-5.10); RED CELL DISTRI WIDTH 14.6 % (0-14.5); WHITE BLOOD COUNT 2.8 10*3/uL (4.8-10.8)
[2020-06-10 07:25] LABS: ALBUMIN 3.3 gm/dl (3.1-4.5); ALKALINE PHOSPHATASE 109 U/L (45-117); BUN 9 mg/dl (7-24); CHLORIDE 117 mmol/L (98-107); CHOLESTEROL 121 mg/dL (<200); CREATININE 0.91 mg/dL (0.55-1.02); FREE T4 0.72 ng/dl (0.76-1.46); HDL CHOLESTEROL 22 mg/dl (40-60); LDL CHOLESTEROL 77 mg/dL (9-159); POTASSIUM 3.9 mmol/L (3.5-5.1); SGOT/AST 77 IU/L (3-35); SGPT/ALT 94 U/L (12-78); SODIUM 146 mmol/L (136-145); TOTAL PROTEIN 7.3 gm/dL (6.4-8.2); TRIGLYCERIDES 111 mg/dl (<150); VLDL CHOLESTEROL 22 mg/dL (6-40)
[2020-06-10 08:05] LABS: VITAMIN D, 25-HYDROXY 46.1 ng/mL (30-100)
--- NOTE | 2020-06-10 13:02 | NUR ---
Discharge instructions reviewed with patient/family. Patient receptive and verbalizes understanding. Follow-up care arranged. Written instructions given to patient/family. CASSI ADAMS
== END 2020-06-10 13:02 | disposition home or self-care (01) ==
LOC: ED 12:11 → EDHOLD 14:15 → 5E 14:15
PROVIDERS: Emergency Medicine; Internal Medicine; ADMIT Student in an Organized Health Care Education/Training Program; ATTEND Student in an Organized Health Care Education/Training Program
DX: K72.90 Hepatic failure, unspecified without coma (principal); G40.909 Epilepsy, unspecified, not intractable, without status epilepticus; E87.8 Other disorders of electrolyte and fluid balance, not elsewhere classified; D72.829 Elevated white blood cell count, unspecified; R03.0 Elevated blood-pressure reading, without diagnosis of hypertension; F31.60 Bipolar disorder, current episode mixed, unspecified; F41.9 Anxiety disorder, unspecified; G25.81 Restless legs syndrome; K21.9 Gastro-esophageal reflux disease without esophagitis; F12.20 Cannabis dependence, uncomplicated; F17.210 Nicotine dependence, cigarettes, uncomplicated

== ENCOUNTER → 2020-06-15 | Outpatient (CLI) | payer OTHER ==
[~2020-06-15] MED LIST changes: +ENULOSE10 GM/151 PO; +LORAZEPAM1 MG PO; +MOBIC7.5 MG PO; +NATURE'S BLEND F1 MG PO; +ROPINIROLE HYD0.5 MG PO
[2020-06-15 12:18] LABS: HEMATOCRIT 42.7 % (37.0-47.0); MEAN CELL VOLUME 105.2 fl (81.0-99.0); MEAN CORPUSCULAR HGB 32.8 pg (27.0-31.0); MEAN CORPUSCULAR HGB CONC 31.1 g/dl (33.0-37.0); MEAN PLATELET VOLUME 10.3 fl (9.6-12.3); RED BLOOD COUNT 4.06 10*6/uL (4.10-5.10); RED CELL DISTRI WIDTH 14.4 % (0-14.5); WHITE BLOOD COUNT 3.3 10*3/uL (4.8-10.8)
[2020-06-15 12:57] LABS: ALBUMIN 3.3 gm/dl (3.1-4.5); ALKALINE PHOSPHATASE 107 U/L (45-117); BUN 7 mg/dl (7-24); CHLORIDE 109 mmol/L (98-107); CHOLESTEROL 132 mg/dL (<200); CREATININE 0.96 mg/dL (0.55-1.02); HDL CHOLESTEROL 22 mg/dl (40-60); LDL CHOLESTEROL 83 mg/dL (9-159); SGOT/AST 116 IU/L (3-35); SGPT/ALT 97 U/L (12-78); SODIUM 144 mmol/L (136-145); TOTAL PROTEIN 7.2 gm/dL (6.4-8.2); TRIGLYCERIDES 136 mg/dl (<150); VLDL CHOLESTEROL 27 mg/dL (6-40)
[2020-06-15 13:41] LABS: VITAMIN D, 25-HYDROXY 51.7 ng/mL (30-100)
[2020-06-16 10:11] LABS: HEP B CORE AB, IGM Negative (Negative); HEPATITIS B SURFACE AG Negative (Negative)
[2020-06-18 08:51] LABS: HEPATITIS C VIRUS ANTIBODY >11.0 s/co (0.0-0.9)
== END | disposition home or self-care (01) ==
LOC: LAB 11:48
PROVIDERS: ATTEND Family Medicine
DX: Z11.59 Encounter for screening for other viral diseases (principal); E78.00 Pure hypercholesterolemia, unspecified; E55.9 Vitamin D deficiency, unspecified; R53.83 Other fatigue; R41.3 Other amnesia

== ENCOUNTER → 2020-06-21 | Outpatient (CLI) | payer OTHER ==
[2020-06-23 12:06] LABS: HEPATITIS C QUANTITATION See Final Results IU/mL (.)
[2020-06-23 13:08] LABS: HCV LOG10 7.193 (.); HCV RNA (INTERNATION UNIT) 15600000 IU/mL (.)
== END | disposition home or self-care (01) ==
LOC: LAB 09:11
PROVIDERS: ATTEND Family Medicine
DX: B18.2 Chronic viral hepatitis C (principal); E74.9 Disorder of carbohydrate metabolism, unspecified; Z79.899 Other long term (current) drug therapy

== ENCOUNTER → 2020-07-09 | Outpatient (CLI) | payer OTHER ==
[~2020-07-09] MED LIST changes: +KEFLEX500 M1 PO
== END | disposition home or self-care (01) ==
LOC: RAD 09:00
PROVIDERS: ATTEND Nurse Practitioner Family
DX: R13.10 Dysphagia, unspecified (principal)

== ENCOUNTER → 2020-07-16 | Outpatient (CLI) | payer OTHER | END | disposition home or self-care (01) | LOC: LAB 12:03 | PROVIDERS: ATTEND Family Medicine | DX: B18.2 Chronic viral hepatitis C (principal); B19.9 Unspecified viral hepatitis without hepatic coma ==

== ENCOUNTER 2020-08-27 17:03 | Emergency (ER) | payer OTHER ==
[~2020-08-27] VITALS: Wt 56.7 kg
[~2020-08-27 17:03] MED LIST changes: -KEFLEX500 M1 PO
[2020-08-27 18:51] LABS: BASO % 0.5 % (0.0-1.0); EOS % 0.7 % (1.0-4.0); HEMATOCRIT 41.8 % (37.0-47.0); LYMPH % 25.1 % (27.0-41.0); MEAN CELL VOLUME 101.5 fl (81.0-99.0); MEAN CORPUSCULAR HGB 32.8 pg (27.0-31.0); MEAN CORPUSCULAR HGB CONC 32.3 g/dl (33.0-37.0); MEAN PLATELET VOLUME 10.2 fl (9.6-12.3); MONO # 0.2 10*3/uL (0.1-1.0); MONO % 3.9 % (3.0-9.0); NEUT # 2.8 10*3/uL (2.3-7.9); NEUT % 69.6 % (47.0-73.0); PLATELET COUNT AUTOMATED 54 10*3/uL (130-400); RED BLOOD COUNT 4.12 10*6/uL (4.10-5.10); RED CELL DISTRI WIDTH 13.7 % (0-14.5); WHITE BLOOD COUNT 4.1 10*3/uL (4.8-10.8)
[2020-08-27 19:04] LABS: ALBUMIN 3.5 gm/dl (3.1-4.5); ALKALINE PHOSPHATASE 124 U/L (45-117); BUN 9 mg/dl (7-24); CHLORIDE 112 mmol/L (98-107); CREATININE 0.85 mg/dL (0.55-1.02); SGOT/AST 101 IU/L (3-35); SGPT/ALT 105 U/L (12-78); SODIUM 142 mmol/L (136-145); TOTAL PROTEIN 7.8 gm/dL (6.4-8.2)
[2020-08-27 19:24] LABS: BILIRUBIN Negative (Negative); BLOOD Negative (Negative); CLARITY Clear (Clear); COLOR Dark Yellow (Yellow); GLUCOSE Negative (Negative); KETONE Trace (Negative); LEUKO ESTERASE Trace (Negative); NITRITE Negative (Negative); PH 7.5 (4.5-8.0); SPECIFIC GRAVITY >= 1.030 (1.001-1.030)
[2020-08-27 19:32] LABS: URINE AMPHETAMINES < 1000 (1000ng/ml); URINE BARBITURATES < 200 (200ng/ml); URINE BENZODIAZEPINES < 200 (200ng/ml); URINE CANNABINOIDS (THC) < 50 (50ng/ml); URINE COCAINE < 300 (300ng/ml); URINE METHADONE < 300 (300ng/ml); URINE OPIATES < 300 (300ng/ml); URINE PHENCYCLIDINE < 25 (25ng/ml)
[2020-08-27 19:41] LABS: BACTERIA 2+
[2020-08-27] MEDS ORDERED: KEFLEX500 M1 PO (22:32)
== END 2020-08-27 23:30 | disposition home or self-care (01) ==
LOC: ED 17:03
PROVIDERS: Nurse Practitioner
DX: N39.0 Urinary tract infection, site not specified (principal); K29.00 Acute gastritis without bleeding; K75.9 Inflammatory liver disease, unspecified; R94.5 Abnormal results of liver function studies; Z88.2 Allergy status to sulfonamides; Z79.899 Other long term (current) drug therapy; Z87.891 Personal history of nicotine dependence

== ENCOUNTER 2020-09-11 13:41 | Emergency (ER) | payer OTHER ==
[~2020-09-11] VITALS: Wt 61.7 kg
[~2020-09-11 13:41] MED LIST changes: +KEFLEX500 M1 PO
[2020-09-11 17:10] LABS: BASO % 0.4 % (0.0-1.0); EOS % 1.8 % (1.0-4.0); HEMATOCRIT 39.5 % (37.0-47.0); LYMPH % 45.1 % (27.0-41.0); MEAN CELL VOLUME 102.9 fl (81.0-99.0); MEAN CORPUSCULAR HGB 32.6 pg (27.0-31.0); MEAN CORPUSCULAR HGB CONC 31.6 g/dl (33.0-37.0); MEAN PLATELET VOLUME 10.1 fl (9.6-12.3); MONO # 0.1 10*3/uL (0.1-1.0); MONO % 5.4 % (3.0-9.0); NEUT # 1.1 10*3/uL (2.3-7.9); NEUT % 47.3 % (47.0-73.0); PLATELET COUNT AUTOMATED 53 10*3/uL (130-400); RED BLOOD COUNT 3.84 10*6/uL (4.10-5.10); WHITE BLOOD COUNT 2.2 10*3/uL (4.8-10.8)
[2020-09-11 17:26] LABS: ALBUMIN 3.3 gm/dl (3.1-4.5); BUN 11 mg/dl (7-24); CHLORIDE 108 mmol/L (98-107); CREATININE 0.81 mg/dL (0.55-1.02); POTASSIUM 4.1 mmol/L (3.5-5.1); SGOT/AST 110 IU/L (3-35); SGPT/ALT 106 U/L (12-78); SODIUM 142 mmol/L (136-145); TOTAL PROTEIN 7.1 gm/dL (6.4-8.2)
[2020-09-11 17:29] LABS: ALKALINE PHOSPHATASE 119 U/L (45-117); TROPONIN I < 0.015 ng/ml (<0.045)
[2020-09-11 17:47] LABS: BILIRUBIN Negative (Negative); BLOOD Negative (Negative); CLARITY Cloudy (Clear); COLOR Dark Yellow (Yellow); GLUCOSE Trace (Negative); KETONE Trace (Negative); LEUKO ESTERASE Trace (Negative); NITRITE Negative (Negative); SPECIFIC GRAVITY 1.025 (1.001-1.030)
[2020-09-11 17:58] LABS: BACTERIA 4+; EPITHELIAL CELLS TNTC; MUCOUS TRACE; RBC 0-2 rbc/hpf (0-2)
== END 2020-09-11 19:26 | disposition home or self-care (01) ==
LOC: ED 13:41
PROVIDERS: Nurse Practitioner
DX: S01.01XA Laceration without foreign body of scalp, initial encounter (principal); W18.39XA Other fall on same level, initial encounter; Y93.89 Activity, other specified; Y92.89 Other specified places as the place of occurrence of the external cause; Y99.8 Other external cause status

== ENCOUNTER → 2020-10-04 | Outpatient (CLI) | payer OTHER ==
[2020-10-04 09:16] LABS: MEAN CELL VOLUME 101.4 fl (81.0-99.0); MEAN CORPUSCULAR HGB CONC 31.6 g/dl (33.0-37.0); MEAN PLATELET VOLUME 11.2 fl (9.6-12.3); RED BLOOD COUNT 4.34 10*6/uL (4.10-5.10); RED CELL DISTRI WIDTH 13.7 % (0-14.5); WHITE BLOOD COUNT 3.3 10*3/uL (4.8-10.8)
[2020-10-04 09:21] LABS: ALBUMIN 3.5 gm/dl (3.1-4.5); ALKALINE PHOSPHATASE 112 U/L (45-117); BUN 11 mg/dl (7-24); CHLORIDE 112 mmol/L (98-107); CHOLESTEROL 123 mg/dL (<200); CPK 54 U/L (26-192); CREATININE 0.89 mg/dL (0.55-1.02); HDL CHOLESTEROL 24 mg/dl (40-60); LDL CHOLESTEROL 67 mg/dL (9-159); POTASSIUM 4.1 mmol/L (3.5-5.1); SGOT/AST 81 IU/L (3-35); SGPT/ALT 92 U/L (12-78); SODIUM 140 mmol/L (136-145); TOTAL PROTEIN 7.2 gm/dL (6.4-8.2); TRIGLYCERIDES 161 mg/dl (<150); VLDL CHOLESTEROL 32 mg/dL (6-40)
[2020-10-04 09:28] LABS: VITAMIN D, 25-HYDROXY 56.7 ng/mL (30-100)
== END | disposition home or self-care (01) ==
LOC: LAB 08:25
PROVIDERS: ATTEND Family Medicine
DX: E78.00 Pure hypercholesterolemia, unspecified (principal); E55.9 Vitamin D deficiency, unspecified; E78.2 Mixed hyperlipidemia; R53.83 Other fatigue; E11.9 Type 2 diabetes mellitus without complications

== ENCOUNTER 2021-01-20 18:53 | Emergency (ER) | payer OTHER ==
[~2021-01-20] VITALS: Wt 61.7 kg
[2021-01-20 20:13] LABS: BILIRUBIN Negative (Negative); BLOOD Negative (Negative); CLARITY Clear (Clear); COLOR Yellow (Yellow); GLUCOSE Negative (Negative); KETONE Negative (Negative); LEUKO ESTERASE Negative (Negative); NITRITE Negative (Negative); PH 6.5 (4.5-8.0)
[2021-01-20 20:32] LABS: EPITHELIAL CELLS TNTC; WBC 0-2 wbc/hpf (0-5)
[2021-01-20 20:33] LABS: BACTERIA 1+; YEAST TRACE
== END 2021-01-20 22:48 | disposition home or self-care (01) ==
LOC: ED 18:53
PROVIDERS: Physician Assistant
DX: K59.00 Constipation, unspecified (principal); F17.200 Nicotine dependence, unspecified, uncomplicated; Z88.2 Allergy status to sulfonamides; Z79.899 Other long term (current) drug therapy; Z79.2 Long term (current) use of antibiotics; Z90.711 Acquired absence of uterus with remaining cervical stump

== ENCOUNTER → 2021-02-06 | Outpatient (CLI) | payer OTHER ==
[2021-02-06 15:20] LABS: HEMATOCRIT 40.5 % (37.0-47.0); MEAN CELL VOLUME 102.8 fl (81.0-99.0); MEAN CORPUSCULAR HGB 33.8 pg (27.0-31.0); MEAN CORPUSCULAR HGB CONC 32.8 g/dl (33.0-37.0); MEAN PLATELET VOLUME 11.3 fl (9.6-12.3); PLATELET COUNT AUTOMATED 45 10*3/uL (130-400); RED BLOOD COUNT 3.94 10*6/uL (4.10-5.10); WHITE BLOOD COUNT 2.5 10*3/uL (4.8-10.8)
[2021-02-06 15:31] LABS: INTERNATIONAL NORM RATIO 1.1 (2.0-3.5)
[2021-02-06 15:52] LABS: ALBUMIN 3.3 gm/dl (3.1-4.5); BILIRUBIN, DIRECT 0.2 mg/dL (0.0-0.2); TOTAL PROTEIN 7.5 gm/dL (6.4-8.2)
[2021-02-06 16:15] LABS: BASOPHILS 1 % (0-1); TOTAL CELLS COUNTED 100 #CELLS
[2021-02-06 16:16] LABS: PLATELET SUFFICIENCY LOW (NORMAL)
[2021-02-06 16:17] LABS: BURR CELLS FEW
[2021-02-07 11:07] LABS: HEPATITIS A AB, TOTAL Positive (Negative); HEPATITIS B SURFACE AG Negative (Negative)
[2021-02-07 20:07] LABS: HCV LOG10 7.196 (.); HEPATITIS C QNT See Final Results IU/mL (.)
== END | disposition home or self-care (01) ==
LOC: LAB 14:41
PROVIDERS: ATTEND Internal Medicine Gastroenterology
DX: B18.2 Chronic viral hepatitis C (principal)

== ENCOUNTER → 2021-02-28 | Outpatient (CLI) | payer OTHER | END | disposition home or self-care (01) | LOC: US 11:28 | PROVIDERS: ATTEND Internal Medicine Gastroenterology | DX: K74.69 Other cirrhosis of liver (principal); R16.1 Splenomegaly, not elsewhere classified; K82.8 Other specified diseases of gallbladder ==

== ENCOUNTER → 2021-05-23 | Outpatient (CLI) | payer OTHER | END | disposition home or self-care (01) | LOC: RAD 13:30 → MAMMO 14:00 | PROVIDERS: ATTEND Nurse Practitioner Primary Care | DX: Z12.31 Encounter for screening mammogram for malignant neoplasm of breast (principal); Z13.820 Encounter for screening for osteoporosis; N64.89 Other specified disorders of breast; M85.851 Other specified disorders of bone density and structure, right thigh; Z72.0 Tobacco use ==

== ENCOUNTER 2021-09-29 12:51 | Emergency (ER) | payer OTHER ==
[~2021-09-29] VITALS: Ht 162.5 cm; Wt 64.0 kg
[2021-09-29 13:56] LABS: BASO % 0.9 % (0.0-1.0); EOS # 0.1 10*3/uL (0.0-0.4); EOS % 1.8 % (1.0-4.0); HEMATOCRIT 39.9 % (37.0-47.0); LYMPH # 1.6 10*3/uL (1.3-4.4); LYMPH % 48.3 % (27.0-41.0); MEAN CELL VOLUME 99.5 fl (81.0-99.0); MEAN CORPUSCULAR HGB 33.9 pg (27.0-31.0); MEAN CORPUSCULAR HGB CONC 34.1 g/dl (33.0-37.0); MEAN PLATELET VOLUME 10.9 fl (9.6-12.3); MONO # 0.2 10*3/uL (0.1-1.0); MONO % 6.2 % (3.0-9.0); NEUT # 1.4 10*3/uL (2.3-7.9); NEUT % 42.2 % (47.0-73.0); PLATELET COUNT AUTOMATED 72 10*3/uL (130-400); RED BLOOD COUNT 4.01 10*6/uL (4.10-5.10); RED CELL DISTRI WIDTH 14.6 % (0-14.5); WHITE BLOOD COUNT 3.3 10*3/uL (4.8-10.8)
[2021-09-29 14:15] LABS: ACT PARTIAL THROMBO TIME 29.9 SECONDS (20.0-32.1); INTERNATIONAL NORM RATIO 1.1 (2.0-3.5)
[2021-09-29 14:28] LABS: ALBUMIN 3.6 gm/dl (3.1-4.5); ALKALINE PHOSPHATASE 106 U/L (45-117); BUN 13 mg/dl (7-24); CHLORIDE 107 mmol/L (98-107); CREATININE 0.94 mg/dL (0.55-1.02); SGOT/AST 42 IU/L (3-35); SGPT/ALT 62 U/L (12-78); SODIUM 136 mmol/L (136-145); TOTAL PROTEIN 7.4 gm/dL (6.4-8.2)
[2021-09-29 14:35] LABS: ETHYL ALCOHOL < 3.0 mg/dl (<3)
[2021-09-29 14:36] LABS: BILIRUBIN Negative (Negative); BLOOD Negative (Negative); CLARITY Cloudy (Clear); COLOR Yellow (Yellow); GLUCOSE Negative (Negative); KETONE Negative (Negative); LEUKO ESTERASE Trace (Negative); NITRITE Positive (Negative); PH 5.5 (4.5-8.0); SPECIFIC GRAVITY 1.025 (1.001-1.030)
[2021-09-29 14:44] LABS: URINE AMPHETAMINES < 1000 (1000ng/ml); URINE BARBITURATES < 200 (200ng/ml); URINE BENZODIAZEPINES < 200 (200ng/ml); URINE CANNABINOIDS (THC) < 50 (50ng/ml); URINE COCAINE < 300 (300ng/ml); URINE METHADONE < 300 (300ng/ml); URINE OPIATES < 300 (300ng/ml)
[2021-09-29 14:49] LABS: URINE PHENCYCLIDINE < 25 (25ng/ml)
[2021-09-29 14:51] LABS: RBC 0-2 rbc/hpf (0-2)
[2021-09-29 14:52] LABS: BACTERIA 3+; EPITHELIAL CELLS TNTC
[2021-09-29] MEDS ORDERED: ARTHRITIS PAI42.5 GM T (15:07)
== END 2021-09-29 15:13 | disposition home or self-care (01) ==
LOC: ED 12:51
PROVIDERS: Emergency Medicine
DX: G89.29 Other chronic pain (principal); G25.81 Restless legs syndrome; K21.9 Gastro-esophageal reflux disease without esophagitis; Z88.2 Allergy status to sulfonamides; Z79.899 Other long term (current) drug therapy; G43.909 Migraine, unspecified, not intractable, without status migrainosus; Z87.891 Personal history of nicotine dependence; Z90.710 Acquired absence of both cervix and uterus; Z98.890 Other specified postprocedural states

== ENCOUNTER → 2021-10-03 | Outpatient (CLI) | payer OTHER ==
[~2021-10-03] MED LIST changes: +ARTHRITIS PAI42.5 GM T
== END | disposition home or self-care (01) ==
LOC: US 09-16 07:30
PROVIDERS: ATTEND Nurse Practitioner Primary Care
DX: I70.203 Unspecified atherosclerosis of native arteries of extremities, bilateral legs (principal)

== ENCOUNTER → 2021-11-15 | Outpatient (CLI) | payer OTHER | END | disposition home or self-care (01) | LOC: MRI 11-01 13:00 | PROVIDERS: ATTEND Student in an Organized Health Care Education/Training Program | DX: M51.17 Intervertebral disc disorders with radiculopathy, lumbosacral region (principal); M47.892 Other spondylosis, cervical region; R29.2 Abnormal reflex ==

== ENCOUNTER → 2022-04-23 | Outpatient (CLI) | payer OTHER ==
[2022-04-23 14:21] LABS: BUN 6 mg/dl (7-24); CHLORIDE 105 mmol/L (98-107); CREATININE 0.91 mg/dL (0.55-1.02); POTASSIUM 3.5 mmol/L (3.5-5.1); SGOT/AST 51 IU/L (3-35); SGPT/ALT 35 U/L (12-78); SODIUM 136 mmol/L (136-145)
[2022-04-23 14:22] LABS: ALKALINE PHOSPHATASE 138 U/L (45-117)
[2022-04-24 09:07] LABS: HBSAG Negative (Negative); HEP B CORE AB, IGM Negative (Negative)
[2022-04-26 18:06] LABS: HEPATITIS C ANTIBODY >11.0 (0.0-0.9)
== END | disposition home or self-care (01) ==
LOC: LAB 13:25
PROVIDERS: ATTEND Nurse Practitioner Family
DX: F11.20 Opioid dependence, uncomplicated (principal); R53.83 Other fatigue; Z11.59 Encounter for screening for other viral diseases; Z72.89 Other problems related to lifestyle

== ENCOUNTER → 2023-03-04 | Outpatient (CLI) | payer OTHER ==
[~2023-03-04] MED LIST changes: +'CLONIDINE0.1 MG PO; +ATORVASTATIN CA40 M1 PO; +BUPRENORPHINE-1 EAC2 SL; +HYDROCHLOROTH12.5 M3 PO; +K-TAB20 MEQ PO; +LINZESS145 MC1 PO; +Synthroid,Levo25 MCG PO; +VITAMIN D350 MCG PO; +XANAX0.5 MG PO
[2023-03-04 13:14] LABS: BASO % 0.9 % (0.0-1.0); EOS # 0.1 10*3/uL (0.0-0.4); EOS % 2.4 % (1.0-4.0); HEMATOCRIT 44.2 % (37.0-47.0); LYMPH # 2.3 10*3/uL (1.3-4.4); MEAN CELL VOLUME 91.5 fl (81.0-99.0); MEAN CORPUSCULAR HGB 30.2 pg (27.0-31.0); MEAN PLATELET VOLUME 10.8 fl (9.6-12.3); MONO # 0.4 10*3/uL (0.1-1.0); MONO % 7.7 % (3.0-9.0); NEUT # 1.7 10*3/uL (2.3-7.9); NEUT % 37.6 % (47.0-73.0); PLATELET COUNT AUTOMATED 119 10*3/uL (130-400); RED BLOOD COUNT 4.83 10*6/uL (4.10-5.10); RED CELL DISTRI WIDTH 13.5 % (0-14.5); WHITE BLOOD COUNT 4.6 10*3/uL (4.8-10.8)
[2023-03-04 13:47] LABS: ALKALINE PHOSPHATASE 106 U/L (46-116); BUN 9 mg/dl (9-23); CHLORIDE 104 mmol/L (98-107); POTASSIUM 3.7 mmol/L (3.4-5.1); SGPT/ALT 49 U/L (10-49); TOTAL PROTEIN 7.9 gm/dL (6.0-8.0)
== END | disposition home or self-care (01) ==
LOC: LAB 12:47
PROVIDERS: ATTEND Internal Medicine
DX: I16.1 Hypertensive emergency (principal); E87.6 Hypokalemia

== ENCOUNTER → 2023-03-06 | Outpatient (CLI) | payer OTHER | END | disposition home or self-care (01) | LOC: TELEHEALTH 08:50 | PROVIDERS: ATTEND Internal Medicine | DX: D61.818 Other pancytopenia (principal); K76.9 Liver disease, unspecified; I67.83 Posterior reversible encephalopathy syndrome; D72.820 Lymphocytosis (symptomatic); B19.20 Unspecified viral hepatitis C without hepatic coma; D64.9 Anemia, unspecified; I10 Essential (primary) hypertension; R05.3 Chronic cough; M06.9 Rheumatoid arthritis, unspecified; F32.A Depression, unspecified; F41.9 Anxiety disorder, unspecified; F11.10 Opioid abuse, uncomplicated; K21.9 Gastro-esophageal reflux disease without esophagitis; Z79.899 Other long term (current) drug therapy; Z80.0 Family history of malignant neoplasm of digestive organs; Z88.2 Allergy status to sulfonamides ==

== ENCOUNTER 2023-03-30 15:59 | Inpatient (IN) | payer OTHER ==
[~2023-03-30] VITALS: Ht 160 cm; Wt 59.0 kg
[2023-03-30 17:18] VITALS: BP 190/100
[2023-03-30 18:03] LABS: BILIRUBIN Negative (Negative); BLOOD 1+ (Negative); CLARITY Cloudy (Clear); COLOR Yellow (Yellow); GLUCOSE Negative (Negative); KETONE 3+ (Negative); LEUKO ESTERASE 2+ (Negative); NITRITE Positive (Negative)
[2023-03-30 18:10] LABS: BACTERIA 1+; RBC 0-2 rbc/hpf (0-2); URINE AMPHETAMINES Negative (1000ng/ml); URINE BARBITURATES Negative (200ng/ml); URINE BENZODIAZEPINES Positive (200ng/ml); URINE CANNABINOIDS (THC) Negative (50ng/ml); URINE COCAINE Negative (300ng/ml); URINE METHADONE Negative (300ng/ml); URINE OPIATES Negative (300ng/ml); URINE PHENCYCLIDINE Negative (25ng/ml); WBC 51-100 wbc/hpf (0-5)
[2023-03-30 18:14] LABS: BASO % 0.4 % (0.0-1.0); EOS % 0.2 % (1.0-4.0); HEMATOCRIT 47.1 % (37.0-47.0); LYMPH # 2.1 10*3/uL (1.3-4.4); LYMPH % 25.1 % (27.0-41.0); MEAN CELL VOLUME 90.9 fl (81.0-99.0); MEAN CORPUSCULAR HGB 30.9 pg (27.0-31.0); MEAN PLATELET VOLUME 9.3 fl (9.6-12.3); MONO # 0.4 10*3/uL (0.1-1.0); MONO % 4.8 % (3.0-9.0); NEUT # 5.9 10*3/uL (2.3-7.9); NEUT % 69.1 % (47.0-73.0); PLATELET COUNT AUTOMATED 143 10*3/uL (130-400); RED BLOOD COUNT 5.18 10*6/uL (4.10-5.10); RED CELL DISTRI WIDTH 15.3 % (0-14.5); WHITE BLOOD COUNT 8.5 10*3/uL (4.8-10.8)
[2023-03-30 18:25] LABS: ACT PARTIAL THROMBO TIME 29.6 SECONDS (20.0-32.1); INTERNATIONAL NORM RATIO 1.2 (2.0-3.5)
[2023-03-30 18:41] LABS: ALKALINE PHOSPHATASE 116 U/L (46-116); BUN 9 mg/dl (9-23); CHLORIDE 103 mmol/L (98-107); LIPASE 35 U/L (12-53); POTASSIUM 3.6 mmol/L (3.4-5.1); SGPT/ALT 17 U/L (10-49); TOTAL PROTEIN 8.2 gm/dL (6.0-8.0)
[2023-03-30 18:44] LABS: ETHYL ALCOHOL < 3.0 mg/dl (<3)
[2023-03-30 19:06] LABS: ABG BASE EXCESS -0.2 mmol/L (-2.0-2.0); ARTERIAL BLOOD GAS PH 7.465 (7.35-7.45); ARTERIAL BLOOD GAS PO2 85.2 (80-90)
[2023-03-30 20:23] VITALS: BP 133/84
[2023-03-30] MEDS ORDERED: QUETIAPINE FUM300 M1 PO (20:34)
[2023-03-30] MEDS ORDERED: ALPRAZOLAM0.5 M3 PO (20:34)
[2023-03-30] MEDS ORDERED: 'CLONIDINE0.1 MG PO (20:36)
[2023-03-30] MEDS ORDERED: SUBOXONE 8 MG-1 EACH SL (20:38)
[2023-03-30] MEDS ORDERED: NALOXONE HCL4 M1 INH (20:39)
[2023-03-30 23:07] VITALS: BP 160/68
[2023-03-31 04:39] VITALS: BP 178/81
[2023-03-31 05:41] LABS: ALKALINE PHOSPHATASE 102 U/L (46-116); BUN 9 mg/dl (9-23); CHLORIDE 103 mmol/L (98-107); FREE T4 1.05 ng/dl (0.89-1.76); POTASSIUM 3.6 mmol/L (3.4-5.1); SGPT/ALT 13 U/L (10-49); TOTAL PROTEIN 7.4 gm/dL (6.0-8.0)
[2023-03-31 06:31] LABS: BASO # 0.1 10*3/uL (0.0-0.1); BASO % 0.8 % (0.0-1.0); EOS # 0.1 10*3/uL (0.0-0.4); EOS % 0.8 % (1.0-4.0); HEMATOCRIT 42.7 % (37.0-47.0); LYMPH # 2.8 10*3/uL (1.3-4.4); LYMPH % 36.6 % (27.0-41.0); MEAN CELL VOLUME 89.1 fl (81.0-99.0); MEAN CORPUSCULAR HGB 30.3 pg (27.0-31.0); MEAN PLATELET VOLUME 9.9 fl (9.6-12.3); MONO # 0.5 10*3/uL (0.1-1.0); MONO % 7.1 % (3.0-9.0); NEUT # 4.1 10*3/uL (2.3-7.9); NEUT % 54.4 % (47.0-73.0); PLATELET COUNT AUTOMATED 130 10*3/uL (130-400); RED BLOOD COUNT 4.79 10*6/uL (4.10-5.10); RED CELL DISTRI WIDTH 15.1 % (0-14.5); WHITE BLOOD COUNT 7.6 10*3/uL (4.8-10.8)
[2023-03-31 15:13] VITALS: BP 146/77
[2023-03-31 16:00] VITALS: BP 146/77
[2023-03-31 20:00] VITALS: BP 147/78
[2023-04-01] VITALS: BP 137/72
[2023-04-01 07:03] LABS: HEMATOCRIT 38.9 % (37.0-47.0); MEAN CELL VOLUME 88.8 fl (81.0-99.0); MEAN CORPUSCULAR HGB 30.8 pg (27.0-31.0); MEAN CORPUSCULAR HGB CONC 34.7 g/dl (33.0-37.0); MEAN PLATELET VOLUME 9.5 fl (9.6-12.3); PLATELET COUNT AUTOMATED 96 10*3/uL (130-400); RED BLOOD COUNT 4.38 10*6/uL (4.10-5.10); WHITE BLOOD COUNT 4.4 10*3/uL (4.8-10.8)
[2023-04-01 07:04] LABS: MANUAL DIFF REFLEX YES
[2023-04-01 07:25] LABS: OVALOCYTES FEW; PLATELET SUFFICIENCY LOW (NORMAL); POLYCHROMASIA SLIGHT; TOTAL CELLS COUNTED 100 #CELLS
[2023-04-01 07:26] LABS: BURR CELLS FEW; ROULEAUX SLIGHT
[2023-04-01 07:57] LABS: BUN 12 mg/dl (9-23); CHLORIDE 105 mmol/L (98-107); POTASSIUM 3.1 mmol/L (3.4-5.1)
[2023-04-01 08:00] VITALS: BP 145/69
[2023-04-01 12:00] VITALS: BP 110/68
[2023-04-01] MEDS ORDERED: LISINOPRIL10 M1 PO (12:02)
[2023-04-01] MEDS ORDERED: ATORVASTATIN CA40 M1 PO (12:02)
== END 2023-04-01 13:10 | disposition home or self-care (01) | DRG 689 ==
LOC: ED 15:59 → 4E 22:49 → EDHOLD 22:49 → 4E 03-31 12:36
PROVIDERS: Emergency Medicine; Internal Medicine; Student in an Organized Health Care Education/Training Program; ADMIT Internal Medicine; ATTEND Internal Medicine
DX: N39.0 Urinary tract infection, site not specified (principal); G93.41 Metabolic encephalopathy; I21.4 Non-ST elevation (NSTEMI) myocardial infarction; I67.83 Posterior reversible encephalopathy syndrome; E87.20 Acidosis, unspecified; F31.60 Bipolar disorder, current episode mixed, unspecified; E55.9 Vitamin D deficiency, unspecified; G62.9 Polyneuropathy, unspecified; R31.9 Hematuria, unspecified; F41.9 Anxiety disorder, unspecified; M17.11 Unilateral primary osteoarthritis, right knee; K59.00 Constipation, unspecified; G25.81 Restless legs syndrome; G40.909 Epilepsy, unspecified, not intractable, without status epilepticus; K21.9 Gastro-esophageal reflux disease without esophagitis; R73.9 Hyperglycemia, unspecified; F17.210 Nicotine dependence, cigarettes, uncomplicated; K74.60 Unspecified cirrhosis of liver; Z88.2 Allergy status to sulfonamides; Z90.710 Acquired absence of both cervix and uterus

== ENCOUNTER → 2024-07-01 | Outpatient (CLI) | payer OTHER ==
[~2024-07-01] MED LIST changes: +ALPRAZOLAM0.5 M3 PO; +LISINOPRIL10 M1 PO; +NALOXONE HCL4 M1 INH; +SUBOXONE 8 MG-1 EACH SL
[2024-07-01 14:21] LABS: POTASSIUM 3.8 mmol/L (3.4-5.1)
[2024-07-04 13:06] LABS: HCV RT-PCR RFX HCV Not Detected IU/mL (.)
== END | disposition home or self-care (01) ==
LOC: LAB 13:14
PROVIDERS: ATTEND Nurse Practitioner Primary Care
DX: M47.814 Spondylosis without myelopathy or radiculopathy, thoracic region (principal); M47.812 Spondylosis without myelopathy or radiculopathy, cervical region; M25.78 Osteophyte, vertebrae; N28.9 Disorder of kidney and ureter, unspecified; K76.9 Liver disease, unspecified

== ENCOUNTER 2024-12-20 18:56 | Emergency (ER) | payer OTHER ==
[~2024-12-20] VITALS: Ht 160 cm; Wt 59.0 kg
== END 2024-12-20 21:37 | disposition left against medical advice (07) ==
LOC: ED 18:56
DX: S10.91XA Abrasion of unspecified part of neck, initial encounter (principal); M54.6 Pain in thoracic spine; M25.531 Pain in right wrist; I10 Essential (primary) hypertension; E78.00 Pure hypercholesterolemia, unspecified; F32.A Depression, unspecified; F41.9 Anxiety disorder, unspecified; F14.90 Cocaine use, unspecified, uncomplicated; F12.90 Cannabis use, unspecified, uncomplicated; F17.200 Nicotine dependence, unspecified, uncomplicated; Z53.29 Procedure and treatment not carried out because of patient's decision for other reasons; Z79.899 Other long term (current) drug therapy; Z88.2 Allergy status to sulfonamides; Z90.710 Acquired absence of both cervix and uterus; Z98.890 Other specified postprocedural states; Y09 Assault by unspecified means; Y93.89 Activity, other specified; Y92.89 Other specified places as the place of occurrence of the external cause; Y99.8 Other external cause status